=== PATIENT | female | born 1940 | race Caucasian/White ===

== ENCOUNTER → 2017-04-25 | Outpatient (CLI) | payer MEDICARE ==
[~2017-04-25] MED LIST: ADVAIR 250-501 EACH INH; AFEDITAB CR60 M1 PO; ALEVE220 MG PO; ASA5UEC PO; ASPIRIN EC81 M1 PO; ASPIRIN325 PO; ATORVASTATIN CA40 MG PO; AZITHROMYCIN 2250 MG PO; CELEXA 20 MG TA20 MG PO; CLARITIN10 MG PO; COLACE100 MG PO; COZAAR 50 MG TA50 M2 PO; CYMBALTA30 MG PO; DAYPRO600 MG PO; DYAZIDE 37.5-21 EACH PO; ESTRACE1 MG PO; FISH OIL 1,001000 M2 PO; FLONASE 0.05%50 MCG NASAL; KETOCONAZOLE15 GM TOP; LEVOTHYROXIN0.025 MG PO; LIPITOR 20 MG T20 M1 PO; LIPITOR20 MG PO; LOPRESSOR50 PO; MAXZIDE-25 MG1 EACH PO; MECLIZINE HCL25 M1 PO; MEDROLDOSEPACK PO; MELATONIN3 MG PO; MELATONIN5 M1 PO; METHYLPREDNISOLO4 MG PO; MINOCIN100 MG PO; MUCINEX600 MG PO; MULTI VITAMIN1 EACH PO; NAPROXEN SODIU220 M2 PO; NEURONTIN 300300 M1 PO; NORVASC10 MG PO; NYSTATIN 1100000 U/M SW&SWALLOW; PREDNISONE 20 M20 M1 PO; PROZAC20 M1 PO; PROZAC20 MG PO; REQUIP 1 MG TABL1 M1 PO; SYMBICORT160 MCG/4. INH; SYMBICORT80 MCG/4.5 INH; TOPAMAX 25 MG T25 M1 PO; TOPAMAX50 MG PO; TOPROL XL25 MG PO; TRAMADOL 50 MG50 MG PO; TRAZODONE HCL100 MG PO; TYLENOL EXTRA500 MG PO; TYLENOL325 MG PO; ULTRAM 50MG TAB50 MG PO; UNICOMPLEX M TA1 TA1 PO; VENTOLIN HFA 1818 GM INH; VITAMIN D31000 UNI2 PO; VOLTAREN GEL 1100 G1 TOP; VOLTAREN GEL 1100 G2 TOP; XANAX 0.25 MG0.25 MG PO; XARELTO15 MG PO; ZPAK PO
--- NOTE | 2017-04-27 09:35 | PAINCON ---
[address] [address] PAIN MANAGEMENT CONSULTATION Name: SANDRANAIMA Néstor [facility] [id number] Admission: 04/25/17 Attend Phys: Angela Pate Discharge: Date of : 38 Report #: [id number] THIS REPORT FOR: //name// CC: Pierre Bustamante The patient is a 76-year-old female, prior seen in the pain clinic in consultation on 01/10/2017 diagnosed with symptomatic lumbar radiculopathy, component of lumbar spondylosis, axial back pain. We talked about moving forward with epidural injection though she was on Xarelto for PE. She notes the pain continued, but has gotten worse over the past 2 weeks without antecedent trauma or overuse. She has been off her Xarelto now for about 6 weeks. She was seen in the ER on 03/18/2017 for acute exacerbation of underlying pulmonary disease and was given a Medrol Dosepak with some transient efficacy of her radicular pain. PHYSICAL EXAMINATION: MUSCULOSKELETAL: Today shows slight decreased right plantarflexion strength and lower extremity extension strength. Positive straight leg raise on the right. Diffuse axial back pain. VITAL SIGNS: Otherwise stable. ASSESSMENT: Symptomatic lumbar radiculopathy. PROCEDURE: Lumbar epidural injection under fluoroscopy. PROCEDURE NOTE: After both written and informed consent to include risk of spinal cord damage, increased pain, weakness and dural puncture, the patient was taken to the fluoroscopy suite, placed in the prone position. After sterile prep and drape, a skin wheal with lidocaine was raised. A 22-gauge epidural Tuohy needle was inserted in the midline at L5-S1 on the right with good loss to resistance. Negative aspiration for cerebrospinal fluid or blood was noted. Then 1 mL of Omnipaque under biplanar fluoroscopy showed good spread within the epidural space. This was followed with 80 mg of triamcinolone plus 1 mL of 1.5% preservative-free Xylocaine, 0.5 mL Xylocaine was then injected to flush the needle; it was removed. The patient was monitored for an appropriate period of time and discharged in good and stable condition. The patient discharged in good and stable condition. Followup is as needed. <ELECTRONICALLY SIGNED> By: Sebastien Bustamante DO 04/27/17 0935 1358 [id number] Bustamante DO /nt
== END | disposition home or self-care (01) ==
LOC: M.PC 03:36
DX: M54.16 Radiculopathy, lumbar region (principal); M47.896 Other spondylosis, lumbar region; I10 Essential (primary) hypertension; J44.9 Chronic obstructive pulmonary disease, unspecified; F41.8 Other specified anxiety disorders; Z86.73 Personal history of transient ischemic attack (TIA), and cerebral infarction without residual deficits; Z79.899 Other long term (current) drug therapy; Z98.890 Other specified postprocedural states; Z86.711 Personal history of pulmonary embolism; Z91.041 Radiographic dye allergy status; Z88.0 Allergy status to penicillin; Z88.6 Allergy status to analgesic agent; Z88.8 Allergy status to other drugs, medicaments and biological substances; Z79.82 Long term (current) use of aspirin

== ENCOUNTER 2017-05-20 17:58 | Emergency (ER) | payer MEDICARE ==
[~2017-05-20] VITALS: Ht 149.9 cm; Wt 79.4 kg
[~2017-05-20 17:58] MED LIST changes: -AZITHROMYCIN 2250 MG PO; -COLACE100 MG PO; -CYMBALTA30 MG PO; -KETOCONAZOLE15 GM TOP; -MINOCIN100 MG PO; -PREDNISONE 20 M20 M1 PO; -PROZAC20 MG PO; -TRAMADOL 50 MG50 MG PO
[2017-05-20] MEDS ORDERED: PREDNISONE 20 M20 M1 PO (18:17)
[2017-05-20] MEDS ORDERED: ZPAK PO (18:17)
[2017-05-20] MEDS ORDERED: VENTOLIN HFA 1818 GM INH (18:44)
[2017-05-20 18:54] VITALS: BP 124/68
--- NOTE | 2017-05-21 11:20 | EKG ---
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 : 1940 Requested By: Aguilar De La Fuente Order Number: [id number] MD: Sadi Hilario Measurements Intervals [place] Rate: 65 P: -2 ND: 150 QRS: 29 QRSD: 78 T: 20 QT: 388 QTc: 404 Interpretive Statements Sinus rhythm Atrial premature complex Compared to ECG 03/18/2017 12:39:21 Atrial premature complex(es) now present Myocardial infarct finding no longer present Electronically Signed On 05-21-2017 11:20:26 [employer] by Sadi Hilario [email or web address] <ELECTRONICALLY SIGNED> By: Sadi Hilario MD, [facility] 05/21/17 1120 17 Sadi Hilario MD, [facility] /EPI
[2017-11-07] MEDS ORDERED: CYMBALTA30 MG PO (14:23)
[2018-02-21] MEDS ORDERED: TRAMADOL 50 MG50 MG PO (08:37)
[2018-02-21] MEDS ORDERED: REQUIP 1 MG TABL1 M1 PO (08:37)
== END 2017-05-20 18:54 | disposition home or self-care (01) ==
LOC: M.ERS 17:58
DX: J44.1 Chronic obstructive pulmonary disease with (acute) exacerbation (principal); J45.909 Unspecified asthma, uncomplicated; I12.9 Hypertensive chronic kidney disease with stage 1 through stage 4 chronic kidney disease, or unspecified chronic kidney disease; N18.2 Chronic kidney disease, stage 2 (mild); J44.9 Chronic obstructive pulmonary disease, unspecified; E78.5 Hyperlipidemia, unspecified; E03.9 Hypothyroidism, unspecified; Z88.0 Allergy status to penicillin; Z88.5 Allergy status to narcotic agent; Z91.041 Radiographic dye allergy status; Z88.8 Allergy status to other drugs, medicaments and biological substances; Z86.73 Personal history of transient ischemic attack (TIA), and cerebral infarction without residual deficits

== ENCOUNTER 2017-07-29 10:58 | Inpatient (IN) | payer MEDICARE ==
[~2017-07-29] VITALS: Ht 157.5 cm; Wt 71.2 kg
[~2017-07-29 10:58] MED LIST changes: +PREDNISONE 20 M20 M1 PO
[2017-07-29 10:59] VITALS: BP 138/108
[2017-07-29] MEDS ORDERED: PROZAC20 MG PO (11:16)
[2017-07-29 11:43] LABS: ABSOLUTE BASOPHILS 0.1 thou/uL (0.0-0.2); ABSOLUTE EOSINOPHILS 0.2 thou/uL (0.0-0.7); ABSOLUTE LYMPHOCYTES 1.9 thou/uL (0.8-5.3); ABSOLUTE MONOCYTES 0.7 thou/uL (0.0-1.2); ABSOLUTE NEUTROPHILS 5.2 thou/uL (1.6-8.1); BASOPHILS 0.9 %; EOSINOPHILS 2.5 %; HEMATOCRIT 42.4 % (37.0-47.0); HEMOGLOBIN 14.9 gm/dL (12.0-15.0); LYMPHOCYTES 23.8 %; MCH 33.2 pg (26.0-34.0); MCHC 35.2 g/dL (28.0-37.0); MCV 94.5 fL (80.0-100.0); MONOCYTES 8.4 %; MPV 7.5 fl. (7.2-11.1); NUCLEATED RBCS 0 /100WBC; PLATELET COUNT* 298 thou/uL (150-400); POLYS 64.4 %; RBC 4.49 mil/uL (4.20-5.00); RDW-CV 13.6 % (10.5-14.5); WBC 8.1 thou/uL (4.0-11.0)
[2017-07-29 11:45] LABS: ANION GAP 10 mmol/L (7-16); BUN 16 mg/dL (7-18); CALCIUM 9.4 mg/dL (8.5-10.1); CHLORIDE 102 mmol/L (98-107); CO2 28 mmol/L (21-32); CREATININE 1.2 mg/dL (0.6-1.3); GLUCOSE 111 mg/dL (70-99); SODIUM 140 mmol/L (136-145)
[2017-07-29 11:46] LABS: POTASSIUM 2.8 mmol/L (3.5-5.1)
[2017-07-29 11:52] LABS: ALBUMIN 3.9 g/dL (3.4-5.0); ALKALINE PHOSPHATASE 93 U/L (46-116); LIPASE 164 U/L (73-393); SGOT 27 U/L (15-37); SGPT 35 U/L (30-65); TOTAL BILIRUBIN 0.5 mg/dL (<0.1-1.0); TOTAL PROTEIN 7.6 g/dL (6.4-8.2); TROPONIN-I LEVEL <0.06 ng/mL (<0.06)
[2017-07-29 14:04] LABS: URINE BILIRUBIN NEGATIVE (Negative); URINE BLOOD NEGATIVE (Negative); URINE CLARITY CLEAR; URINE COLOR YELLOW; URINE GLUCOSE-RANDOM NEGATIVE (Negative); URINE KETONES NEGATIVE (Negative); URINE LEUKOCYTES-REFLEX 1+ (Negative); URINE NITRITE-REFLEX NEGATIVE (Negative); URINE PROTEIN NEGATIVE (Negative); URINE SPECIFIC GRAVITY <= 1.005 (1.005-1.030); URINE UROBILINOGEN 0.2 E.U./dl (0.2-1.0)
[2017-07-29 14:12] LABS: BACTERIA-REFLEX 1-9 Few /HPF (None Seen); CASTS None Seen /LPF (None Seen); CRYSTALS None Seen /LPF (None Seen); MUCUS None Seen strn/LPF (None Seen); SQUAMOUS 4-10 Moderate /LPF (0-3); URINE RBC 0-2 Rare /HPF (0-2); URINE WBC-REFLEX 0-5 Rare /HPF (0-5)
[2017-07-29 15:35] VITALS: BP 114/67
[2017-07-29 17:34] VITALS: BP 102/60
--- NOTE | 2017-07-29 18:24 | NUR ---
PATIENT ARRIVED ON UNIT FROM ER AT 1630. COMPLETED ADMISSION ASSESSMENT AND HISTORY. ORIENTED PATIENT TO ROOM, CALL LIGHT, AND TV. PATIENT VERBALIZED UNDERSTANDING. PATIENT REMAINED ALERT AND ORIENTED X'S 4. VITAL SIGNS AND SPO2 STABLE. IV CLEAN FLUIDS INFUSING. PAIN WELL CONTROLLED WITH PAIN MEDS. NO NAUSEA AND VOMITING. VOIDED WITHOUT ISSUE USING BEDSIDE COMMODE. COMPLETED HOURLY ROUNDING, CALL LIGHT WITIHN REACH. WILL CONTINUE TO MONITOR.
[2017-07-29 21:20] VITALS: BP 153/62
--- NOTE | 2017-07-30 06:00 | NUR ---
PATIENT ALERT AND ORIENTED. VITALS STABLE. RA. UP WITH ASSIST X 1 WALKER AND GAITBELT TO BATHROOM. FENTANYL GIVEN FOR PAIN, EFFECTIVE. FLUIDS INFUSING PER ORDER. DENIES NAUSEA. SLEPT COMFORTABLY THROUGH THE NIGHT. HOURLY ROUNDS. BED ALARM IN USE. NURSING WILL CONTINUE TO MONITOR.
[2017-07-30 08:45] VITALS: BP 120/57; BP 127/55; BP 153/73
[2017-07-30 15:49] VITALS: BP 137/67
--- NOTE | 2017-07-30 17:57 | NUR ---
ASSUMED CARE OF PATIENT AFTER REPORT THIS MORNING. PATIENT AWAKE, ALERT, AND ORIENTED APPROPRIATELY. PHYSICAL ASSESSMENT COMPLETED AND CHARTED. COMPLAINED OF PAIN THIS SHIFT. GIVEN PRN AND SCHEDULED MEDICATIONS, SEE EMAR FOR DOCUMENTATION. VITAL SIGNS STABLE. OXYGEN SATURATION WITHIN NORMAL LIMITS ON ROOM AIR. PATIENT HAS SAT IN RECLINER AT BEDSIDE FOR MOST OF DAY. TRANSFERS AND AMBULATES WITH ASSISTANCE FROM STAFF AND WALKER. USES CALL LIGHT APPROPRIATELY. DENIES NEEDS AT THIS TIME. CALL LIGHT WITHIN REACH. NURSING WILL CONTINUE TO MONITOR.
[2017-07-30 20:00] VITALS: BP 142/66
--- NOTE | 2017-07-31 00:37 | NUR ---
PATIENT ORIENTED X4. UP WITH STAND BY ASSIST TO BATHROOM, TOLERATED WELL. TRAMADOL GIVEN FOR BACK PAIN. VITALS STABLE ON ROOM AIR. WILL CONTINUE TO MONITOR.
[2017-07-31 08:15] VITALS: BP 131/63
[2017-07-31] MEDS ORDERED: MEDROLDOSEPACK PO (08:34)
[2017-07-31 11:07] VITALS: BP 140/61
[2017-07-31 11:09] VITALS: BP 145/80
[2017-07-31 11:11] VITALS: BP 146/79
[2017-07-31 11:33] VITALS: BP 146/79
--- NOTE | 2017-07-31 12:00 | NUR ---
PT.UP IN CHAIR FOR LUNCH. SHE HAD DRESSED BY HERSELF IN BATHROOM. PT.ALERT AND ORIENTED. STATED SHE LIVES WITH HER SON. HE ASSISTS HER NEEDED. SHE HAS A CANE AND WALKER. SHE HAS USED [facility] IN THE PAST. SHE WOULD LIKE TO USE THEM AGAIN. SPOKE WITH [facility] AND FAXED DISCHARGE ORDERS TO HER. THEY WILL SEE PT.TOMORROW FOR NURSING AND HH.
--- NOTE | 2017-07-31 12:56 | NUR ---
PT HAS BEEN GIVEN DISCHARGE INSTRUCTIONS, HER AND HER SON DID NOT VERBALIZE ANY QUESTIONS AT THIS TIME. PT VERBALIZED UNDERSTANDING IN THE CHANGES OF HER MEDICATION REGIMEN AT THIS TIME. PT VSS STABLE, FREE OF N/V. PT HAVING NO ISSUES WITH GI/ AT THE TIME OF DISCHAGE. IV DISCONTINUED. PT TAKEN AT THIS TIME TO PERSONAL CAR WITH HER SON IN A WHEEL CHAIR WITH BELONGINGS.
--- NOTE | 2017-07-31 13:03 | NUR ---
THIS NURSE AGREES WITH ALL CHARTING AND DOCUMENTATION COMPLETED BY MELINDA CLAYTON RN. PATIENT DISCHARGED.
[2017-11-07] MEDS ORDERED: CYMBALTA30 MG PO (14:23)
[2018-02-21] MEDS ORDERED: TRAMADOL 50 MG50 MG PO (08:37)
[2018-02-21] MEDS ORDERED: REQUIP 1 MG TABL1 M1 PO (08:37)
== END 2017-07-31 13:05 | disposition home health service (06) | DRG 552 ==
LOC: M.ERS 10:58 → M.TBA-ER 14:28 → M.ORTHSURG 14:28
PROVIDERS: Physician Assistant; ADMIT Internal Medicine
DX: M54.16 Radiculopathy, lumbar region (principal); G25.81 Restless legs syndrome; J44.9 Chronic obstructive pulmonary disease, unspecified; E78.5 Hyperlipidemia, unspecified; E03.9 Hypothyroidism, unspecified; I12.9 Hypertensive chronic kidney disease with stage 1 through stage 4 chronic kidney disease, or unspecified chronic kidney disease; M19.90 Unspecified osteoarthritis, unspecified site; E87.6 Hypokalemia; Z82.49 Family history of ischemic heart disease and other diseases of the circulatory system; N18.2 Chronic kidney disease, stage 2 (mild); Z79.899 Other long term (current) drug therapy; Z86.73 Personal history of transient ischemic attack (TIA), and cerebral infarction without residual deficits; Z98.41 Cataract extraction status, right eye; Z86.711 Personal history of pulmonary embolism; Z88.8 Allergy status to other drugs, medicaments and biological substances; Z88.0 Allergy status to penicillin; Z88.6 Allergy status to analgesic agent; Z91.041 Radiographic dye allergy status; Z87.891 Personal history of nicotine dependence

== ENCOUNTER → 2017-08-22 | Outpatient (CLI) | payer MEDICARE ==
[~2017-08-22] MED LIST changes: +AZITHROMYCIN 2250 MG PO; +COLACE100 MG PO; +CYMBALTA30 MG PO; +KETOCONAZOLE15 GM TOP; +MINOCIN100 MG PO; +PROZAC20 MG PO; +TRAMADOL 50 MG50 MG PO
--- NOTE | 2017-08-23 06:52 | PAINCON ---
[facility] [address] [place] [address] PAIN MANAGEMENT CONSULTATION Name: SANDRANAIMA Néstor [facility] [id number] Admission: 08/22/17 Attend Phys: Angela Pate Discharge: Date of : 39 Report #: [id number] THIS REPORT FOR: //name// CC: Pierre Bustamante The patient is a 76-year-old female, prior seen in pain clinic back in April for symptomatic lumbar radiculopathy. Had single injection with overall improvement of baseline pain. She notes symptoms have begun to recur on July 07. Had a minor lifting injury, moving the cat litter box. Developed low back pain, which has progressed now to the left lateral leg to the foot, had some subjective weakness in the leg. Physical exam does note some tenderness in the T3 and L3 midline area. Does have some decreased strength in left leg to objective exam. Hip flexion and extension is about 3/5, 4-5/5 on the right. Straight leg raise is equivocal on the left side. The patient rates her pain as 7 on a VAS. Physical exam otherwise shows a 4 feet 11 inch, 158 pound female, BMI is 32 kilograms per meter squared. Blood pressure 137/75, pulse 60, respirations 16. Taking tramadol and Tylenol for pain. Rises from chair using armrest, moderately antalgic gait. Physical exam as noted above. CT was accomplished when the patient was admitted to hospital short-term (07/29/2017 through ) for sciatic type pain. CT noted anterolisthesis at L4-L5 with left greater than right neural foraminal stenosis. ASSESSMENT: Symptomatic lumbar radiculopathy by clinical exam and history, prior radicular symptoms, improved with epidural injection. Concern for thoracic and lumbar vertebral compression fracture. RECOMMENDATIONS: 1. Epidural injection under fluoroscopy today, we will go a little higher due to more anterior distribution of pain at L3-L4. 2. X-ray of the thoracic and lumbar spine with request to Interventional Radiology to follow up if the compression fracture is noted for more definitive therapy. The patient has been off Xarelto now for several weeks. PROCEDURE: Lumbar epidural injection under fluoroscopy. PROCEDURE NOTE: After both written and informed consent to include risk of spinal cord damage, increased pain, weakness and dural puncture, the patient was taken to the fluoroscopy suite, placed in the prone position. After sterile prep and drape, a skin wheal with lidocaine was raised. A 22-gauge epidural Tuohy needle was inserted in the midline at L3-L4 [place] [address] PAIN MANAGEMENT CONSULTATION Name: SANDRANAIMA W Room: [facility] PATY Michelle#: [id number] Admission: 08/22/17 Attend Phys: Angela Pate Discharge: Date of : 39 Report #: [id number] Negative aspiration for cerebrospinal fluid or blood was noted. Then 1 mL of Omnipaque under biplanar fluoroscopy showed good spread within the epidural space. This was followed with 80 mg of triamcinolone plus 1 mL of 1.5% preservative-free Xylocaine, 0.5 mL Xylocaine was then injected to flush the needle; it was removed. The patient was monitored for an appropriate period of time and discharged in good and stable condition. <ELECTRONICALLY SIGNED> By: Sebastien Bustamante DO 08/23/17 0652 1309 [id number] Bustamante DO /nt
== END | disposition home or self-care (01) ==
LOC: M.PC 02:42 → M.LAB 02:42 → M.PC 10:30
DX: M54.16 Radiculopathy, lumbar region (principal); G89.29 Other chronic pain; I10 Essential (primary) hypertension; J44.9 Chronic obstructive pulmonary disease, unspecified; F41.8 Other specified anxiety disorders; Z86.73 Personal history of transient ischemic attack (TIA), and cerebral infarction without residual deficits; Z91.041 Radiographic dye allergy status; Z88.0 Allergy status to penicillin; Z88.8 Allergy status to other drugs, medicaments and biological substances; Z79.82 Long term (current) use of aspirin; Z79.899 Other long term (current) drug therapy; Z86.711 Personal history of pulmonary embolism

== ENCOUNTER → 2017-09-19 | Outpatient (CLI) | payer MEDICARE ==
--- NOTE | 2017-09-24 06:53 | PAINCON ---
[facility] [address] [place] [address] PAIN MANAGEMENT CONSULTATION Name: SANDRANAIMA Néstor [facility] [id number] Admission: 09/19/17 Attend Phys: Angela Pate Discharge: Date of : 39 Report #: [id number] THIS REPORT FOR: //name// CC: Pierre Bustamante DATE OF SERVICE: 09/19/2017 HISTORY OF PRESENT ILLNESS: The patient is a 76-year-old female, prior seen in the pain clinic on 08/22/2017, given epidural injection at that time. The patient returns to the pain clinic today noting the injection has afforded good relief, is able to lie on her left side. She could not do this before. She notes perhaps 50% overall relief. Still has pain in the left L5 distribution. PHYSICAL EXAMINATION: Shows significant decreased left leg strength about 3/5 to all muscle groups tested, particularly plantar flexion and lower extremity flexion. Right leg has diminished strength to about 4/5. Grossly positive straight leg raise at 30 degrees on the left. Vital signs otherwise note blood pressure 152/71, pulse 71, respirations 16, BMI is 34.6 kilograms per meter squared. Subjective pain score is 6 on a VAS. Continued to use tramadol p.r.n. and Tylenol. ASSESSMENT: Symptomatic lumbar radiculopathy. RECOMMENDATION: Lumbar epidural injection under fluoroscopy today at L5-S1. Follow up simply as needed. Continue range of motion, physical therapy and exercise. PROCEDURE: Lumbar epidural injection under fluoroscopy. PROCEDURE NOTE: After both written and informed consent to include risk of spinal cord damage, increased pain, weakness and dural puncture, the patient was taken to the fluoroscopy suite, placed in the prone position. After sterile prep and drape, a skin wheal with lidocaine was raised. A 22-gauge epidural Tuohy needle was inserted in the midline at L5-S1 with good loss to resistance. Negative aspiration for cerebrospinal fluid or blood was noted. Then 1 mL of Omnipaque under biplanar fluoroscopy showed good spread within the epidural space. This was followed with 80 mg of triamcinolone plus 1 mL of 1.5% preservative-free Xylocaine, 0.5 mL Xylocaine was then injected to flush the needle; it was removed. The patient was monitored for an appropriate period of time and discharged in good and stable condition. <ELECTRONICALLY SIGNED> By: Sebastien Bustamante DO 09/24/17 0653 1356 0436Sebastien Bustamante DO /nt
== END | disposition home or self-care (01) ==
LOC: M.PC 01:43
DX: M54.16 Radiculopathy, lumbar region (principal); G89.29 Other chronic pain; I10 Essential (primary) hypertension; J44.9 Chronic obstructive pulmonary disease, unspecified; F41.8 Other specified anxiety disorders; Z86.73 Personal history of transient ischemic attack (TIA), and cerebral infarction without residual deficits; Z88.0 Allergy status to penicillin; Z91.040 Latex allergy status; Z88.8 Allergy status to other drugs, medicaments and biological substances; Z79.82 Long term (current) use of aspirin; Z79.899 Other long term (current) drug therapy; Z98.890 Other specified postprocedural states

== ENCOUNTER 2017-10-20 14:00 | Emergency (ER) | payer MEDICARE ==
[~2017-10-20] VITALS: Ht 144.8 cm; Wt 68.0 kg
[~2017-10-20 14:00] MED LIST changes: -AZITHROMYCIN 2250 MG PO; -COLACE100 MG PO; -CYMBALTA30 MG PO; -KETOCONAZOLE15 GM TOP; -MINOCIN100 MG PO; -TRAMADOL 50 MG50 MG PO
[2017-10-20] MEDS ORDERED: TRAMADOL 50 MG50 MG PO (14:29)
[2017-10-20 14:31] VITALS: BP 123/79
[2017-10-21] MEDS ORDERED: KETOCONAZOLE15 GM TOP (21:49)
[2017-10-21] MEDS ORDERED: AZITHROMYCIN 2250 MG PO (21:51)
[2017-11-07] MEDS ORDERED: CYMBALTA30 MG PO (14:23)
[2018-02-21] MEDS ORDERED: TRAMADOL 50 MG50 MG PO (08:37)
[2018-02-21] MEDS ORDERED: REQUIP 1 MG TABL1 M1 PO (08:37)
== END 2017-10-20 14:32 | disposition home or self-care (01) ==
LOC: M.ERS 14:00
DX: M54.5 Low back pain (principal); F41.9 Anxiety disorder, unspecified; J45.909 Unspecified asthma, uncomplicated; F32.9 Major depressive disorder, single episode, unspecified; G25.81 Restless legs syndrome; I12.9 Hypertensive chronic kidney disease with stage 1 through stage 4 chronic kidney disease, or unspecified chronic kidney disease; N18.3 Chronic kidney disease, stage 3 (moderate); Z86.711 Personal history of pulmonary embolism; Z86.73 Personal history of transient ischemic attack (TIA), and cerebral infarction without residual deficits; Z88.0 Allergy status to penicillin; Z88.8 Allergy status to other drugs, medicaments and biological substances; Z91.041 Radiographic dye allergy status; Z88.5 Allergy status to narcotic agent

== ENCOUNTER 2017-10-21 21:09 | Emergency (ER) | payer MEDICARE ==
[~2017-10-21] VITALS: Ht 144.8 cm; Wt 68.0 kg
[~2017-10-21 21:09] MED LIST changes: +TRAMADOL 50 MG50 MG PO
[2017-10-21 21:19] VITALS: BP 138/66
[2017-10-21] MEDS ORDERED: KETOCONAZOLE15 GM TOP (21:49)
[2017-10-21] MEDS ORDERED: AZITHROMYCIN 2250 MG PO (21:51)
[2017-11-07] MEDS ORDERED: CYMBALTA30 MG PO (14:23)
[2018-02-21] MEDS ORDERED: REQUIP 1 MG TABL1 M1 PO (08:37)
[2018-02-21] MEDS ORDERED: TRAMADOL 50 MG50 MG PO (08:37)
== END 2017-10-21 22:00 | disposition home or self-care (01) ==
LOC: M.ERS 21:09
DX: B35.3 Tinea pedis (principal); J44.9 Chronic obstructive pulmonary disease, unspecified; F41.9 Anxiety disorder, unspecified; I12.9 Hypertensive chronic kidney disease with stage 1 through stage 4 chronic kidney disease, or unspecified chronic kidney disease; N18.3 Chronic kidney disease, stage 3 (moderate); F32.9 Major depressive disorder, single episode, unspecified; Z88.0 Allergy status to penicillin; Z88.5 Allergy status to narcotic agent

== ENCOUNTER → 2017-11-07 | Outpatient (CLI) | payer MEDICARE ==
[~2017-11-07] MED LIST changes: +AZITHROMYCIN 2250 MG PO; +COLACE100 MG PO; +CYMBALTA30 MG PO; +KETOCONAZOLE15 GM TOP; +MINOCIN100 MG PO
--- NOTE | 2017-11-08 07:27 | PAINCON ---
[address] [address] PAIN MANAGEMENT CONSULTATION Name: SANDRANAIMA Palm Room: [facility] Viviana#: [id number] Admission: 11/07/17 Attend Phys: Angela Pate Discharge: Date of : 39 Report #: [id number] THIS REPORT FOR: //name// CC: Pierre Bustamante DATE OF SERVICE: 11/07/2017 HISTORY OF PRESENT ILLNESS: The patient is a pleasant 77-year-old female, prior seen in the pain clinic 09/19/2017. She was given an epidural injection at that time. Unfortunately, that day she had significant activity and noted diminished efficacy of the injection. She prior had epidural injections in April 2017 and August 2017 with excellent improvement of symptoms. She returns to pain clinic today noting pain has become quite problematic, it is in the low back, left leg with objective decreased strength to left leg to physical exam, objective hip flexion and extension, plantar flexion is about 3/5 on the left side, about 4/5 on the right. Patellar reflex is diminished, 1/4 on the left and 2/4 on the right. Straight leg raise is grossly positive at 30 degrees on the left. The patient rates subjective pain score is 6 on a VAS exacerbated with standing and walking. She has an appointment to see Dr. Bowen at [facility] for consideration for decompressive laminectomy. We reviewed the MRI from 07/29/2017, which notes L4-L5 to have moderate degenerative facet changes, 4 mm anterolisthesis of L4 and L5, left-sided neural foraminal narrowing. L5-S1 notes mild disk bulging. ASSESSMENT: Symptomatic lumbar radiculopathy by clinical exam and history. RECOMMENDATION: Epidural injection under fluoroscopy today, midline L5-S1 to help mitigate current symptoms, continue to follow up with Dr. Bowen for consideration for definitive intervention. PROCEDURE: Lumbar epidural injection under fluoroscopy. PROCEDURE NOTE: After both written and informed consent to include risk of spinal cord damage, increased pain, weakness and dural puncture, the patient was taken to the fluoroscopy suite, placed in the prone position. After sterile prep and drape, a skin wheal with lidocaine was raised. A 22-gauge epidural Tuohy needle was inserted in the midline at L5-S1 with good loss to resistance. Negative aspiration for cerebrospinal fluid or blood was noted. Then 1 mL of Omnipaque under biplanar fluoroscopy showed good spread [place] [address] PAIN MANAGEMENT CONSULTATION Name: SANDRANAIMA Néstor Room: [facility]#: [id number] Admission: 11/07/17 Attend Phys: Angela Pate Discharge: Date of : 39 Report #: [id number]. This was followed with 80 mg of triamcinolone plus 1 mL of 1.5% preservative-free Xylocaine, 0.5 mL Xylocaine was then injected to flush the needle; it was removed. The patient was monitored for an appropriate period of time and discharged in good and stable condition. <ELECTRONICALLY SIGNED> By: Sebastien Bustamante DO 11/08/17 0727 1327 2030[facility] Centeradrianne Bustamante DO /nt
== END | disposition home or self-care (01) ==
LOC: M.PC 10-31 04:13
DX: M54.16 Radiculopathy, lumbar region (principal); G89.29 Other chronic pain; I10 Essential (primary) hypertension; F41.9 Anxiety disorder, unspecified; J44.1 Chronic obstructive pulmonary disease with (acute) exacerbation; Z86.711 Personal history of pulmonary embolism; Z86.73 Personal history of transient ischemic attack (TIA), and cerebral infarction without residual deficits; Z88.0 Allergy status to penicillin; Z98.890 Other specified postprocedural states; Z88.8 Allergy status to other drugs, medicaments and biological substances; Z91.041 Radiographic dye allergy status; Z79.899 Other long term (current) drug therapy

== ENCOUNTER 2017-12-04 17:10 | Observation (INO) | payer MEDICARE ==
[~2017-12-04] VITALS: Ht 144.8 cm; Wt 73.5 kg
[~2017-12-04 17:10] MED LIST changes: -COLACE100 MG PO; -MINOCIN100 MG PO
[2017-12-04 17:11] VITALS: BP 176/91
[2017-12-04 18:16] LABS: ABSOLUTE BASOPHILS 0.1 thou/uL (0.0-0.2); ABSOLUTE EOSINOPHILS 0.3 thou/uL (0.0-0.7); ABSOLUTE LYMPHOCYTES 2.2 thou/uL (0.8-5.3); ABSOLUTE MONOCYTES 0.6 thou/uL (0.0-1.2); ABSOLUTE NEUTROPHILS 3.3 thou/uL (1.6-8.1); BASOPHILS 0.9 %; EOSINOPHILS 4.9 %; HEMATOCRIT 34.3 % (37.0-47.0); HEMOGLOBIN 11.9 gm/dL (12.0-15.0); LYMPHOCYTES 34.5 %; MCH 34.1 pg (26.0-34.0); MCHC 34.5 g/dL (28.0-37.0); MCV 98.8 fL (80.0-100.0); MONOCYTES 8.8 %; MPV 7.4 fl. (7.2-11.1); NUCLEATED RBCS 0 /100WBC; PLATELET COUNT* 233 thou/uL (150-400); POLYS 50.9 %; RBC 3.48 mil/uL (4.20-5.00); WBC 6.4 thou/uL (4.0-11.0)
[2017-12-04 18:23] LABS: ANION GAP 7 mmol/L (7-16); BUN 26 mg/dL (7-18); CALCIUM 8.4 mg/dL (8.5-10.1); CHLORIDE 109 mmol/L (98-107); CO2 26 mmol/L (21-32); CREATININE 0.9 mg/dL (0.6-1.3); GLUCOSE 91 mg/dL (70-99); POTASSIUM 3.1 mmol/L (3.5-5.1); SODIUM 142 mmol/L (136-145)
[2017-12-04 18:24] LABS: PROTIME 9.5 Seconds (9.20-11.50)
[2017-12-04 18:34] LABS: ALBUMIN 3.2 g/dL (3.4-5.0); ALKALINE PHOSPHATASE 57 U/L (46-116); LIPASE 163 U/L (73-393); NT-PRO BRAIN NAT PEPTIDE 132 pg/mL (<300); SGOT 18 U/L (15-37); SGPT 23 U/L (30-65); TOTAL BILIRUBIN 0.2 mg/dL (<0.1-1.0); TOTAL PROTEIN 6.1 g/dL (6.4-8.2); TROPONIN-I LEVEL <0.06 ng/mL (<0.06)
[2017-12-04 20:00] VITALS: BP 148/96
[2017-12-04 20:28] VITALS: BP 172/82
[2017-12-04 22:45] LABS: URINE BILIRUBIN NEGATIVE (Negative); URINE BLOOD NEGATIVE (Negative); URINE CLARITY CLEAR; URINE COLOR YELLOW; URINE GLUCOSE-RANDOM NEGATIVE (Negative); URINE KETONES NEGATIVE (Negative); URINE LEUKOCYTES-REFLEX NEGATIVE (Negative); URINE NITRITE-REFLEX NEGATIVE (Negative); URINE PROTEIN NEGATIVE (Negative); URINE UROBILINOGEN 0.2 E.U./dl (0.2-1.0)
[2017-12-04 23:30] VITALS: BP 145/71
[2017-12-05 04:00] VITALS: BP 136/80
[2017-12-05 05:44] LABS: CHOLESTEROL 142 mg/dL (<200); HDL CHOLESTEROL 74 mg/dL (>40); LDL CHOLESTEROL 48 mg/dL (<100); TC:HDL 1.9 Ratio (Not establshd); TRIGLYCERIDE 101 mg/dL (<150); VLDL 20 mg/dL (<40)
[2017-12-05 05:49] LABS: SERUM ASSESSMENT Clear
[2017-12-05 08:00] VITALS: BP 148/87
[2017-12-05 12:00] VITALS: BP 112/63
[2017-12-05 13:15] VITALS: BP 112/63
--- NOTE | 2017-12-05 13:37 | EKG ---
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1940 Requested By: Lars Buchanan Order Number: [id number] MD: Magan Melendez Measurements Intervals [place] Rate: 64 P: 45 RI: 186 QRS: 18 QRSD: 94 T: 27 QT: 439 QTc: 453 Interpretive Statements Sinus rhythm Consider anterior infarct Minimal ST depression, lateral leads Compared to ECG 05/20/2017 18:18:03 Myocardial infarct finding now present ST (T wave) deviation now present Atrial premature complex(es) no longer present Electronically Signed On 12-05-2017 13:37:07 CDT by Magan Melendez [email or web address] <ELECTRONICALLY SIGNED> By: Magan Melendez MD, FACC 12/05/17 1337 1753 1753 Magan Melendez MD, [facility] /EPI
[2017-12-05] MEDS ORDERED: COLACE100 MG PO (14:07)
[2017-12-05] MEDS ORDERED: MINOCIN100 MG PO ×3 (14:15→15:29)
[2017-12-07 05:10] LABS: GLYCOHEMOGLOBIN (HGB A1C) 5.4 % (4.8-5.6)
--- NOTE | 2017-12-07 12:17 | EEG ---
[address] [address] EEG STUDY REPORT Name: NAIMA FLORES Room: [address] Sarai Michelle#: [id number] Admission: 12/04/17 Attend Phys: Angela Bueno Discharge: 12/05/17 Date of : 38 Report #: [id number] THIS REPORT FOR: //name// CC: Pierre Hess DATE OF SERVICE: 12/05/2017 This patient is being evaluated for an episode of confusion. EEG was done by placing the electrode by standard 10-20 system of electrode placement. Both referential and sequential montages were used for recording. Background activity in this patient's EEG is about 9 Hz and 40 microvolts. The patient went to sleep that is associated with bilaterally symmetrical sleep spindle and vertex sharp waves. Photic stimulation is unremarkable. Throughout the record, no active epileptiform activity was noticed. IMPRESSION: This patient's EEG is within normal limits. Thank you very much for this referral. <ELECTRONICALLY SIGNED> By: Wolfgang Guzmán MD 12/07/17 1217 1824 1839Wolfgang Guzmán MD /nt
--- NOTE | 2017-12-07 12:17 | CON ---
[address] [address] CONSULTATION Name: NAIMA FLORES Room: [address] [place]ai Michelle#: [id number] Admission: 12/04/17 Attend Phys: Angela Bueno Discharge: 12/05/17 Date of : 38 Report #: [id number] THIS REPORT FOR: //name// CC: ESETE physician/PCP Eric Hess DATE OF SERVICE: 12/04/2017 HISTORY OF PRESENT ILLNESS: This is a 77-year-old female patient whom I have seen in the past. In fact, we have seen her more than one time and she has been admitted with confusion, for which we have not been able to find any cause. At one time in 2016, she even received TPA. She has been seen by multiple neurologists including Dr. Pedraza and Dr. Pettit and I have talked to this patient's son. She again is admitted with some poorly defined history of confusion and some shakiness from which she became better. She is under a lot of stress. Her son has been diagnosed with rectal cancer with metastasis to the liver as I understand from her. She has multiple other history including anxiety, nerve injury, sciatic nerve problem, dizziness, possible TIA, for which I have seen, but I am not sure the diagnosis was confirmed hip fracture. She cannot have an MRI because of ear implant, so MRI has not been done in this patient and the prior the diagnosis has been presumptive. REVIEW OF SYSTEMS: A 14-point review of systems was carried out and this was her relevant 14-point review of system. At one time, she was also thought to be having migraine and she was given Topamax. PAST MEDICAL HISTORY: Positive for TIA-like symptoms, is also positive for anxiety and depression. FAMILY HISTORY: Negative for early age stroke. SOCIAL HISTORY: She does not smoke. PHYSICAL EXAMINATION: Indicate she is alert. She is anxious. She can follow simple commands. Her speech looks unremarkable. Memory and fund of knowledge is difficult to tell. She takes long time to answer the question, but this is not much different than she was when I saw her last time. Cranial nerve examination 2-12 looks unremarkable. Neuromuscular examination is unremarkable. Cardiac examinations appear unremarkable. No respiratory difficulty or rhonchi. She is moderately built individual who does not have any dysmorphic features of eyes, ears and face. There is no cerebellar sign. There is no thyroid mass. Blood pressure is 172/82, respirations 17, pulse is 60. LABORATORY DATA: Indicate a WBC count of 6.4. IMPRESSION: This patient's episode may be because of anxiety[place] [address] CONSULTATION Name: NAIMA FLORES Room: [address] [place]ai Michelle#: [id number] Admission: 12/04/17 Attend Phys: Angela Bueno Discharge: 12/05/17 Date of : 38 Report #: [id number] patient multiple times before and I have never been able to find any cause for her symptoms. RECOMMENDATIONS: We will check an EEG and I will discuss the patient with you to see whether we need to do any further testing in this patient. She may need a psych consult. Thank you very much for this referral and I have discussed all of it with the patient and the patient's son in the past. <ELECTRONICALLY SIGNED> By: Wolfgang Guzmán MD 12/07/17 1217 0138Wolfgang Guzmán MD /nt
[2018-02-21] MEDS ORDERED: TRAMADOL 50 MG50 MG PO (08:37)
[2018-02-21] MEDS ORDERED: REQUIP 1 MG TABL1 M1 PO (08:37)
== END 2017-12-05 16:20 | disposition home or self-care (01) ==
LOC: M.ERS 17:10 → M.2W 18:35 → M.TBA-ER 18:35 → M.2W 18:35
PROVIDERS: Emergency Medicine; ADMIT Internal Medicine
DX: G45.9 Transient cerebral ischemic attack, unspecified (principal); R41.82 Altered mental status, unspecified; R53.1 Weakness; G43.909 Migraine, unspecified, not intractable, without status migrainosus; J44.9 Chronic obstructive pulmonary disease, unspecified; I12.9 Hypertensive chronic kidney disease with stage 1 through stage 4 chronic kidney disease, or unspecified chronic kidney disease; N18.3 Chronic kidney disease, stage 3 (moderate); F41.9 Anxiety disorder, unspecified; F32.9 Major depressive disorder, single episode, unspecified; Z86.69 Personal history of other diseases of the nervous system and sense organs; Z86.711 Personal history of pulmonary embolism; Z98.890 Other specified postprocedural states; Z72.89 Other problems related to lifestyle; Z87.891 Personal history of nicotine dependence

== ENCOUNTER 2017-12-10 15:57 | Emergency (ER) | payer MEDICARE ==
[~2017-12-10] VITALS: Ht 144.8 cm; Wt 72.6 kg
[~2017-12-10 15:57] MED LIST changes: +COLACE100 MG PO; +MINOCIN100 MG PO
[2017-12-10 17:32] VITALS: BP 166/80
--- NOTE | 2017-12-11 17:16 | EKG ---
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 YATES : 1940 Requested By: Tatyana Latham Order Number: [id number] Barron MD: Magan Melendez Measurements Intervals [place] Rate: 70 P: 31 [place]: 164 QRS: 42 QRSD: 87 T: 28 QT: 405 QTc: 437 Interpretive Statements Sinus rhythm Nonspecific ST segment depression, consider ischemia Compared to ECG 12/04/2017 17:53:47 Myocardial infarct finding no longer present ST (T wave) deviation still present Electronically Signed On 12-11-2017 17:16:51 CDT by Magan Melendez [email or web address] <ELECTRONICALLY SIGNED> By: Magan Melendez MD, [facility] 12/11/17 1716 1615 1615 Magan eMlendez MD, [facility] /EPI
[2018-02-21] MEDS ORDERED: TRAMADOL 50 MG50 MG PO (08:37)
[2018-02-21] MEDS ORDERED: REQUIP 1 MG TABL1 M1 PO (08:37)
== END 2017-12-10 17:38 | disposition left against medical advice (07) ==
LOC: M.ERS 15:57
DX: R27.0 Ataxia, unspecified (principal); J44.9 Chronic obstructive pulmonary disease, unspecified; I10 Essential (primary) hypertension; G25.81 Restless legs syndrome; Z88.0 Allergy status to penicillin; Z91.041 Radiographic dye allergy status; Z88.5 Allergy status to narcotic agent

== ENCOUNTER → 2018-01-01 | Outpatient (CLI) | payer MEDICARE ==
--- NOTE | 2018-01-09 16:41 | PAINCON ---
[address] [address] PAIN MANAGEMENT CONSULTATION Name: NAIMA FLORES Room: [facility] PATY Michelle#: [id number] Admission: 01/01/18 Attend Phys: Armando Ruiz MD Discharge: Date of : 39 Report #: [id number] THIS REPORT FOR: //name// CC: Pierre Ruiz DATE OF SERVICE: 01/01/2018 CHIEF COMPLAINT: Low back pain. I would like to consider an injection. FOLLOWUP HISTORY: The patient is a 77-year-old female who has been seen in the pain clinic by Dr. Sebastien Bustamante. She has undergone epidural steroid injections and glean excellent benefit from these procedures. She has returned today indicating that her pain has increased somewhat. She is having pain and discomfort, which is radiating down into her legs. She has been in the hospital because of micro transient ischemic attacks. The longest transient ischemic attack described as moderate lasted about 60-80 minutes. She has had no residuals. She has a history of migraines and COPD. She has returned today with a consideration of undergoing an injection. She continues to take tramadol to help with the pain. She is not on opioid medications on a long-term basis. ALLERGIES: CONTRAST DYE, BETA ADRENERGIC AGENTS, PENICILLIN, LISINOPRIL, GABAPENTIN, AND HYDROCODONE. CURRENT MEDICATIONS: Tylenol Extra Strength 500 mg every 4-6 hours, aspirin 325 mg, Lipitor 40 mg, Colace 100 mg, Flonase 0.05% spray, nifedipine 60 mg ER, restless leg syndrome using Requip tablets 3 mg at bedtime, Topamax 75 mg p.m. and 50 mg a.m., tramadol 50 mg, and Maxzide 25 mg. PAST MEDICAL HISTORY: 1. Asthma. 2. COPD. 3. Hypertension. 4. Heart disease. 5. Gallbladder disease. 6. Kidney disease. 7. Emotional problems. 8. Joint disease/arthritis. 9. Stroke. 10. Ulcers. PAST SURGICAL HISTORY: Hysterectomy in 1979 and cholecystectomy in 1999. 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 [address] PAIN MANAGEMENT CONSULTATION Name: NAIMA FLORES Room: [facility]#: [id number] Admission: 01/01/18 Attend Phys: Armando Ruiz MD Discharge: Date of : 39 Report #: [id number] REVIEW OF SYSTEMS: Questionnaire generally noting weight changes, fevers at night, fatigue, weakness, headaches, glaucoma/cataracts, hearing loss, ringing in the ears, shortness of breath, swelling of the feet, chronic cough, shortness of breath, asthma, joint pain, difficulty walking, back pain, muscle soreness, memory, nervousness, depression, and insomnia. LABORATORY DATA: MRI of the lumbar spine dated 07/29/2017 reveals: 1. L3-L4 foramen intact, mild broad base disk bulge, mild ligamentum hypertrophy. This produces a borderline spinal narrowing at this level. 2. L4-L5, there is moderate degenerative facet changes with vacuum disk at the L4-L5 level. There is a 4 mm anterolisthesis of L4 upon L5. The upper right foramen is intact. There is a left-sided foramen spurring, which encroaches upon the lower foramen, but the left nerve root appears to exceed just above these changes. There is a moderate AP spinal stenosis at this level. This could account for symptoms of the L4 nerve root distribution. There may be some impingement. 3. L5-S1, there is mild disk bulging. The axial nerve root appears intact. PAIN CLINIC ASSESSMENT: 1. History of osteoarthritis. The patient has not been treated for rheumatoid arthritis or osteoarthritis. 2. Height 4 feet 9 inches, weight 157 pounds, BMI is 34. 3. Vital Signs: Blood pressure 175/77, heart rate 62, respiratory rate 16, room air saturation 98%, and temperature 97.7. 4. Pain impact score 5-05/15/10. 5. Fall risk. The patient has not fallen in the last 3 months. 6. Blood thinner. The patient is not on a blood thinning medication. 7. History of hypertension. The patient is being treated for hypertension. 8. Opioid therapy greater than 6 weeks. The patient is not on an opioid medication on a regular basis. 9. Risk assessment tool. 10. Functional assessment tool. 11. Recreational drug use. The patient denies use of recreational drugs. 12. Tobacco: The patient stopped smoking in 1999. She has approximately [id number] smoking history. 13. Alcohol: The patient denies use of alcoholic beverages. PHYSICAL EXAMINATION: GENERAL: The patient is a well-developed white female, appears her stated age. She is alert and oriented x 3. Affect is appropriate. The speech is fluent. HEENT: Normocephalic, atraumatic. Extraocular eye muscles intact. Sclerae nonicteric. Hearing is within normal limits. Mucous membranes are moist. NECK: Without adenopathy or JVD. The patient without significant scoliosis, kyphosis, or lordosis. Has pain and discomfort, which is radiating down [place] [address] PAIN MANAGEMENT CONSULTATION Name: NAIMA FLORES Room: [facility]#: [id number] Admission: 01/01/18 Attend Phys: Armando Ruiz MD Discharge: Date of : 39 Report #: [id number] IMPRESSION: 1. Chronic low back pain with lumbar radicular pain, which improved with epidural steroid injection. 2. History of transient ischemic attacks. The patient's son states that her last TIA was of the longest duration was about 80 minutes. 3. Chronic obstructive pulmonary disease. 4. Migraine history. 5. The patient's son has a rectal cancer, which has metastasized to his liver. States that it is doing reasonably well as a type A type, which is responding to treatment with [facility]. RECOMMENDATIONS: We reviewed the patient's chart. It appears that she had an epidural steroid injection in the last 3 months. At this juncture, we have informed her that probably her insurance company would not pay for an injection at this juncture. She will follow up in February. The patient will return in February, at which time she will then undergo an epidural steroid injection. We would like to thank you for letting us participate in her care. We hope she continues to improve. <ELECTRONICALLY SIGNED> By: Armando Ruiz MD 01/09/18 1641 [id number]. Johnson Ruiz MD /nt
== END ==
LOC: M.PC 12-25 11:20
DX: M54.5 Low back pain (principal); J44.9 Chronic obstructive pulmonary disease, unspecified; G43.909 Migraine, unspecified, not intractable, without status migrainosus; I10 Essential (primary) hypertension; G45.9 Transient cerebral ischemic attack, unspecified

== ENCOUNTER → 2018-02-21 | Outpatient (CLI) | payer MEDICARE ==
--- NOTE | 2018-02-25 10:00 | PAINCON ---
[address] [address] PAIN MANAGEMENT CONSULTATION Name: NAIMA FLORES [id number] Admission: 02/21/18 Attend Phys: Armando Ruiz MD Discharge: Date of : 39 Report #: [id number] THIS REPORT FOR: //name// CC: Pierre Ruiz DATE OF SERVICE: 02/21/2018 CHIEF COMPLAINT: Back pain down in the left leg. HISTORY OF PRESENT ILLNESS: The patient is a 77-year-old female, who has been seen in the pain clinic because of chronic pain. She is experiencing pain that is radiating down into her low back area. She has undergone an epidural steroid injection and gleaned excellent benefit from these. She rates her pain as a 5/10. She notes some weakness in the L5-S1 dermatomal distribution. She notes the pain can be problematic with activities of daily living such as walking, sitting, climbing stairs, standing, and finds her medication as well as rest continue to be helpful. CURRENT MEDICATIONS: The patient is on extra strength Tylenol 500 mg q.4 hours, aspirin 325 mg, Lipitor 40 mg, Colace 100 mg, Flonase 0.05% spray, nifedipine 60 mg ER, restless legs syndrome, uses Requip 3 mg at bedtime; Topamax 75 mg p.m., 50 mg a.m.; tramadol 50 mg, and Maxzide 25 mg. ALLERGIES: THE PATIENT IS ALLERGIC TO CONTRAST DYE, BETA-ADRENERGIC AGENTS, PENICILLIN, LISINOPRIL, GABAPENTIN, AND HYDROCODONE. PAIN CLINIC ASSESSMENT AND PQRS: 1. History of osteoarthritis. The patient is not being treated for osteoarthritis or rheumatoid arthritis. 2. Pain is 5/10. 3. Fall risk. The patient has not fallen in the last 3 months. 4. Blood thinner. The patient is not on a blood thinning medication. 5. History of hypertension. The patient is being treated for hypertension. 6. Opioid therapy greater than 6 weeks. The patient is not on her opioid regimen, but does take tramadol 50 mg b.i.d. 7. Risk assessment tool. 8. Functional assessment tool. 9. Recreational drug use. The patient denies use of recreational drugs. 10. Tobacco: The patient stopped smoking in 1999. She has approximately 12-pack smoking history. 11. Alcohol: The patient denies use of alcoholic beverages. PHYSICAL EXAMINATION: GENERAL: The patient is a well-developed, well-nourished white female. She appears her stated age. She is alert and oriented x 3. [place] [address] PAIN MANAGEMENT CONSULTATION Name: NAIMA FLORES Room: [facility]#: [id number] Admission: 02/21/18 Attend Phys: Armando Ruiz MD Discharge: Date of : 39 Report #: [id number]. Speech is fluent. Height is 4 feet 9 inches, weight is 159 pounds, and BMI is 34. VITAL SIGNS: Blood pressure is 136/65, heart rate is 68, respiratory rate is 16, room air saturation is 95%, and temperature is 97.9. HEENT: Normocephalic, atraumatic. Extraocular eye muscles intact. Sclerae nonicteric. Mucous membranes are moist. NECK: Without adenopathy or JVD. HEART: Regular rate. ABDOMEN: Nontender. Bowel sounds present. The patient has pain and discomfort in the lower portion of her back with pain that radiates down in the left sciatic nerve distribution with numbness, weakness, and tenderness. IMPRESSION: 1. Chronic low back pain with lumbar radicular pain, which has improved in the past significantly with an epidural steroid injections. 2. History of transient ischemic attack. 3. Chronic obstructive pulmonary disease. 4. Migraine history. 5. Son has rectal cancer. He continues to teach at [employer]. He has had some metastases to his liver. He is doing reasonably well, but has significant amounts of pain. He continues with treatment at [facility]. RECOMMENDATIONS: We have discussed treatment options with the patient. Her son was present. They both agree that a lumbar epidural steroid injection could be beneficial. She has had them in the past. They have been beneficial. She has had no complications. Her desire is to proceed with an injection. Risks and benefits of the procedure, which could include, but are not limited to infection, increased muscle soreness, headache, bleeding, worsening of pain, and paralysis were discussed and the patient elects to proceed. PROCEDURE NOTE: The patient was taken to the procedure area. She was assisted in getting on the examination table. Fluoroscopy using anterior, posterior as well as lateral viewing were incorporated. Her back and been sterilely prepped with Betadine. A 0.25% bupivacaine was infiltrated. A 25-gauge needle was then used to numb the area. A 17-gauge Tuohy with loss of resistance technique was used to gain excess using left paraspinal approach. A total of 80 mg Depo-Medrol, 40 mg of triamcinolone, and 2 mL of 0.25% bupivacaine was injected. The patient tolerated the procedure well. There were no complications. She was then taken to the recovery room. She remained for appropriate amount of time. Her fluoroscopy time in seconds was 6. The patient will follow up in the future as needed. [facility] [address] [place] [address] PAIN MANAGEMENT CONSULTATION Name: NAIMA FLORES Room: [facility]#: [id number] Admission: 02/21/18 Attend Phys: Armando Ruiz MD Discharge: Date of : 39 Report #: [id number] We would like to thank you for letting us to participate in her care. We hope she continues to improve. <ELECTRONICALLY SIGNED> By: Armando Ruiz MD 02/25/18 1000 [id number] [id number]. Johnson Ruiz MD /PMT
== END | disposition home or self-care (01) ==
LOC: M.PC 05:18
DX: M54.16 Radiculopathy, lumbar region (principal); G89.29 Other chronic pain; J44.9 Chronic obstructive pulmonary disease, unspecified; G43.909 Migraine, unspecified, not intractable, without status migrainosus; Z86.73 Personal history of transient ischemic attack (TIA), and cerebral infarction without residual deficits; Z80.0 Family history of malignant neoplasm of digestive organs; Z91.040 Latex allergy status; Z88.0 Allergy status to penicillin; Z88.8 Allergy status to other drugs, medicaments and biological substances; Z79.899 Other long term (current) drug therapy

== ENCOUNTER → 2018-05-23 | Outpatient (CLI) | payer MEDICARE ==
--- NOTE | ~2018-05-23 | PAINCON ---
[address] [address] PAIN MANAGEMENT CONSULTATION Name: NAIMA FLORES Room: [facility] PATY Michelle#: [id number] Admission: 05/23/18 Attend Phys: Armanod uRiz MD Discharge: Date of : 39 Report #: [id number] THIS REPORT FOR: //name// CC: Pierre Metz DATE OF SERVICE: 05/23/2018 CHIEF COMPLAINT: Here for another epidural steroid injection. Things went really well after the last. HISTORY: The patient is a 77-year-old female who has been seen in the pain clinic because of chronic pain involving her low back. She has had pain that radiates down into the L5-S1 dermatomal distribution. She has undergone epidural steroid injections in the past and gleaned benefit from this. She has noted a return of her pain. Last injection was in 02/2018. Had no complication from the procedure. She has returned today with a desire to undergo another epidural steroid injection and that she received a significant amount of pain and discomfort or pain reduction after the last injection. Denies any trauma or complications after the last injection. Rates her pain today as a 5/10. Finds that tramadol and Tylenol continue to be helpful as well. ALLERGIES: THE PATIENT IS ALLERGIC TO CONTRAST DYE, BETA ADRENERGIC AGENTS, PENICILLIN, LISINOPRIL, GABAPENTIN, HYDROCODONE. CURRENT MEDICATIONS: Tylenol 500 mg, aspirin 325 mg, Lipitor 40 mg, Colace 100 mg, Flonase 0.05% spray, nifedipine 60 mg ER, restless leg syndrome uses Requip 3 mg at bedtime, Topamax 75 mg p.m., 50 mg a.m., tramadol 50 mg, Maxzide 25 mg. PAIN CLINIC ASSESSMENT/PQRS: 1. The patient is not being treated for osteoarthritis or rheumatoid arthritis. 2. Pain /10. 3. Vital Signs: Blood pressure 134/66, heart rate 73, respiratory rate 20, room air saturation 97%. Temperature 97.8, height 5 feet 4 inches, weight 150 pounds, BMI 32.6. 4. Pain intensity score 10. 5. Fall history: The patient has not fallen in the last 3 months. 6. Blood thinner. The patient is not on a blood thinning medication. 7. Hypertension. The patient is being treated for hypertension. 8. Opioid greater than 6 weeks. The patient is not on a regular opioid medication, but does take tramadol. 9. Risk assessment tool, low for opioid use. 10. Functional assessment tool. 11. Recreational drug use. The patient denies use of recreational drugs. 12. Tobacco: The patient stopped smoking in 1999, approximately a [id number] [address] PAIN MANAGEMENT CONSULTATION Name: SANDRANAIMA W Room: [facility]#: [id number] Admission: 05/23/18 Attend Phys: Armando Ruiz MD Discharge: Date of : 39 Report #: [id number] smoking history. 13. Alcohol: The patient denies use of alcoholic beverages. PHYSICAL EXAMINATION: GENERAL: The patient is a well-developed, well-nourished white female. She appears her stated age. She is alert and oriented x 3. Her affect is appropriate. Speech is fluent. She is accompanied by her son. HEENT: Normocephalic, atraumatic. Extraocular eye muscles intact. Sclerae nonicteric. Mucous membranes moist. The patient wears glasses. NECK: Without adenopathy or JVD. HEART: Regular rate. S1, S2. ABDOMEN: Nontender. Bowel sounds present. The patient has some pain and discomfort in lower portion of her back with pain that radiates down in the left sciatic area in the L5 dermatomal distribution with numbness, tingling, and weakness. IMPRESSION: 1. Chronic low back pain with lumbar radicular pain improved after an epidural steroid injection in February. 2. History of transient ischemic attack. 3. Chronic obstructive pulmonary disease. 4. Migraine history. 5. Son continues with chemotherapy, teaches at [employer]. Has had cancer with some liver mets. Continues to improve with his current medication regimen, which she receives at [facility]. RECOMMENDATIONS: We discussed treatment options with the patient and her son. Risks and benefits of an epidural steroid injection were again reviewed. Possible complications of the procedure could include, but are not limited to infection, worsening pain, no improvement in pain, nerve damage, paralysis, bleeding and the patient elects to proceed. PROCEDURE NOTE: The patient was taken to the procedure area. She was assisted in getting on the examination table. A pillow was placed on her abdomen to bolster improve positioning. The anterior, posterior and lateral viewing with the fluoroscopy machine was undertaken. Her back was sterilely prepped with a Betadine solution and allowed to dry. At the L5-S1 area on the left side using the left paramedian approach, 0.25% bupivacaine was infiltrated with a 25-gauge needle. A 17-gauge Tuohy with loss of resistance technique was used to gain access to the epidural space. There was no CSF, heme or paresthesia. Total of 80 mg Depo-Medrol, 40 mg triamcinolone and 2 mL of 0.25% bupivacaine was injected. Total of 8 seconds fluoroscopy time was used. The patient's pain score was 4 at the time of discharge. [place] [address] PAIN MANAGEMENT CONSULTATION Name: NAIMA FLORES Room: [facility]#: [id number] Admission: 05/23/18 Attend Phys: Armando Ruiz MD Discharge: Date of : 39 Report #: [id number] needed. We would like to thank you for letting us participate in her care. We hope she continues to improve. By: 1447 1941N. Johnson Ruiz MD /PAZ
== END | disposition home or self-care (01) ==
LOC: M.PC 12:30
DX: M54.16 Radiculopathy, lumbar region (principal); G89.29 Other chronic pain; I10 Essential (primary) hypertension; J44.9 Chronic obstructive pulmonary disease, unspecified; G43.909 Migraine, unspecified, not intractable, without status migrainosus; F41.9 Anxiety disorder, unspecified; Z86.73 Personal history of transient ischemic attack (TIA), and cerebral infarction without residual deficits; Z88.0 Allergy status to penicillin; Z91.041 Radiographic dye allergy status; Z88.8 Allergy status to other drugs, medicaments and biological substances; Z79.899 Other long term (current) drug therapy; Z87.891 Personal history of nicotine dependence; Z98.890 Other specified postprocedural states; Z86.711 Personal history of pulmonary embolism; Z79.01 Long term (current) use of anticoagulants; Z79.82 Long term (current) use of aspirin

== ENCOUNTER 2018-06-05 17:30 | Emergency (ER) | payer MEDICARE ==
[~2018-06-05] VITALS: Ht 144.8 cm; Wt 65.8 kg
[2018-06-05 17:37] VITALS: BP 159/81
== END 2018-06-05 19:08 | disposition home or self-care (01) ==
LOC: M.ERS 17:30
DX: S61.412A Laceration without foreign body of left hand, initial encounter (principal); J44.9 Chronic obstructive pulmonary disease, unspecified; I10 Essential (primary) hypertension; G25.81 Restless legs syndrome; Z88.0 Allergy status to penicillin; Z91.041 Radiographic dye allergy status; Z88.5 Allergy status to narcotic agent; Z88.8 Allergy status to other drugs, medicaments and biological substances; W01.0XXA Fall on same level from slipping, tripping and stumbling without subsequent striking against object, initial encounter; Y93.89 Activity, other specified; Y92.89 Other specified places as the place of occurrence of the external cause; Y99.8 Other external cause status

== ENCOUNTER 2018-07-30 03:17 | Emergency (ER) | payer MEDICARE ==
[~2018-07-30] VITALS: Ht 144.8 cm; Wt 66.7 kg
[~2018-07-30 03:17] MED LIST changes: +CIPROFLOXACIN500 M1 PO
[2018-07-30] MEDS ORDERED: KEFLEX500 M1 PO (04:03)
[2018-07-30 04:12] VITALS: BP 141/67
--- NOTE | 2018-07-30 17:09 | EKG ---
[place] [address] ELECTROCARDIOGRAM REPORT Name: NAIMA FLORES Room: [facility]#: [id number] Admission: 07/30/18 Attend Phys: Discharge: 07/30/18 Date of : 39 Report #: [id number] THIS REPORT FOR: //name// [facility] ED Test Date: 2018-07-30 Test Time: 03:30:17 Pat Name: NAIMA FLORES Department: Room: Gender: F Educational Technician: STARR : 1940 Requested By: Ragini Guzman Order Number: [id number] Barron MD: Magan Melendez Measurements Intervals [place] Rate: 73 P: 26 WA: 162 QRS: 33 QRSD: 85 T: 32 QT: 399 QTc: 440 Interpretive Statements Sinus rhythm Minimal ST depression, diffuse leads Compared to ECG 12/10/2017 16:15:54 ST (T wave) deviation now present Possible ischemia no longer present Electronically Signed On 07-30-2018 17:09:32 CDT by Magan Melendez [email or web address] <ELECTRONICALLY SIGNED> By: Magan Melendez MD, [facility] 07/30/18 1709 0330 Magan Melendez MD, FACC /EPI
== END 2018-07-30 04:12 | disposition home or self-care (01) ==
LOC: M.ERS 03:17
DX: M79.18 Myalgia, other site (principal); R68.84 Jaw pain; G25.81 Restless legs syndrome; F41.9 Anxiety disorder, unspecified; J44.9 Chronic obstructive pulmonary disease, unspecified; I12.9 Hypertensive chronic kidney disease with stage 1 through stage 4 chronic kidney disease, or unspecified chronic kidney disease; N18.2 Chronic kidney disease, stage 2 (mild); Z88.0 Allergy status to penicillin; Z91.041 Radiographic dye allergy status; Z88.5 Allergy status to narcotic agent; Z88.8 Allergy status to other drugs, medicaments and biological substances

== ENCOUNTER → 2018-08-08 | Outpatient (CLI) | payer MEDICARE ==
[~2018-08-08] MED LIST changes: +KEFLEX500 M1 PO
--- NOTE | ~2018-08-08 | PAINCON ---
[address] [address] PAIN MANAGEMENT CONSULTATION Name: NAIMA FLORES Room: [facility] PATY Michelle#: [id number] Admission: 08/08/18 Attend Phys: Armando Ruiz MD Discharge: Date of : 39 Report #: [id number] THIS REPORT FOR: //name// CC: Pierre Ruiz DATE OF SERVICE: 08/08/2018 CHIEF COMPLAINT: Low back pain. HISTORY: The patient is a 77-year-old female who has been seen in the pain clinic because of lumbar radiculopathy. She has undergone epidural steroid injections in the past and gleaned significant benefit from these. She did quite well until she fell in June. States that she fell on the ice. Did cut her fingers a bit. Did not need Emergency Room attention. States at this point, she is having pain, which is quite problematic and causes her to roll out of the bed. She was able to get out of bed. She then had to crawl on her knees. She is unable to stand. Rates her pain as a 10/10 at this juncture. She has returned to the pain clinic with a desire to undergo an epidural steroid injection. Noted 100% relief after her pain after the last injection. She feels that the tramadol is helpful with her pain. Also, uses Tylenol. She does have some problems with restless legs syndrome and finds that the medications at bedtime are helpful. Notes activities now such as walking, sitting, standing and climbing stairs are more problematic. ALLERGIES: PENICILLIN, LISINOPRIL, GABAPENTIN, HYDROCODONE, IV CONTRAST DYES, AND BETA ADRENERGIC AGENTS ARE PROBLEMATIC. CURRENT MEDICATIONS: Tylenol 500 mg, aspirin 325 mg, Lipitor 40 mg, Colace 100 mg, Flonase 0.05% spray, nifedipine 60 mg ER, restless legs syndrome, Requip 3 mg at bedtime, Topamax 75 mg p.m., 50 mg a.m., tramadol 50 mg, Maxzide 25 mg. PAIN CLINIC ASSESSMENT/PQRS: 1. The patient is not being treated for osteoarthritis or rheumatoid arthritis. 2. Height is 4 feet 9 inches, weight 156 pounds, BMI is 34. 3. Vital Signs: Blood pressure 159/85, heart rate 67, respiratory rate 16, room air saturation 95%, temperature 97.8. 4. Pain intensity 02/20. 5. Fall history: The patient did fall in June. 6. Blood thinner. The patient is not on a blood thinning medication. 7. Hypertension. The patient is being treated for hypertension. 8. Opioids greater than 6 weeks. The patient receives her medication from one source, the pain clinic. 9: Risk assessment tool, low for low opioid use. 10. Functional assessment tool. 11. Recreational drug use. The patient denies [place] [address] PAIN MANAGEMENT CONSULTATION Name: NAIMA FLORES [facility] [id number] Admission: 08/08/18 Attend Phys: Armando Ruiz MD Discharge: Date of : 39 Report #: [id number] 12. Tobacco. The patient stopped smoking in 1999. Smoking history of approximately [id number]. 13. Alcohol: The patient denies use of alcoholic beverages. PHYSICAL EXAMINATION: GENERAL: The patient is a well-developed, well-nourished white female. Appears her stated age. She is alert and oriented x 3. Her affect is appropriate. Speech is fluent. HEENT: Normocephalic, atraumatic. Extraocular eye muscles are intact. Sclerae nonicteric. Mucous membranes are moist. The patient is wearing glasses. She is accompanied by her son who is an educator at an [employer]. NECK: Without adenopathy or JVD. HEART: Regular rate. ABDOMEN: Nontender. Bowel sounds are present. The patient has pain and discomfort in lower back. She moves quite slowly and carefully. Some assistance is needed to help her get on the table. Uses both hands is to go from a sitting to a standing position. Complains about pain and discomfort in the L5 dermatomal distribution with pain radiating down into the left leg with weakness. IMPRESSION: 1. Chronic low back pain improved by 100% after the last epidural steroid injection until a fall on the ice in June. 2. History of transient ischemic attacks. 3. Chronic obstructive pulmonary disease. 4. Migraine history. 5. Son continues to teach at [employer] and is taking chemotherapy. Has continued to lose weight with cancer in the rectal area, which has metastasized to his liver. Continues to be treated at [facility]. RECOMMENDATIONS: We discussed treatment options with the patient and her son. At this juncture, she felt that she got good relief from the injection. She would like to proceed with another one. Risks and benefits of the procedure were again discussed. The possible complication of the procedure, which could include but are not limited to infection, worsening of pain, no improvement in pain, trauma to the nerves with paralysis. The patient elects to proceed. PROCEDURE NOTE: The patient was placed in the prone position. Fluoroscopy was used to identify the area using anterior, posterior ____. Her back was sterilely prepped with a Betadine solution. A 0.25% bupivacaine was infiltrated at the L4-L5 interspace using the left midline approach. After appropriate placement and infiltration with a 25-gauge needle with 0.25% bupivacaine was infiltrated to numb the area. A 17-gauge Tuohy with loss of resistance technique at the L4-L5 area was used using the paramedian approach and after appropriate placement, aspiration was negative. A total of 80 mg Depo-Medrol, [place] [address] PAIN MANAGEMENT CONSULTATION Name: NAIMA FLORES [facility]: [facility]#: [id number] Admission: 08/08/18 Attend Phys: Armando Ruiz MD Discharge: Date of : 39 Report #: [id number] 40 mg triamcinolone and 2 mL of 0.25% bupivacaine was injected. The patient tolerated the procedure well. There were no complications. We would like to thank you for letting us participate in her care. Hope she continues to improve. A total of about 7 seconds fluoroscopy time was used. By: 1216 [id number]. Johnson Ruiz MD /nt
== END | disposition home or self-care (01) ==
LOC: M.PC 00:34
DX: M54.16 Radiculopathy, lumbar region (principal); G89.29 Other chronic pain; I10 Essential (primary) hypertension; J44.9 Chronic obstructive pulmonary disease, unspecified; G43.909 Migraine, unspecified, not intractable, without status migrainosus; F41.9 Anxiety disorder, unspecified; Z88.0 Allergy status to penicillin; Z88.8 Allergy status to other drugs, medicaments and biological substances; Z91.041 Radiographic dye allergy status; Z79.899 Other long term (current) drug therapy; Z86.73 Personal history of transient ischemic attack (TIA), and cerebral infarction without residual deficits; Z87.891 Personal history of nicotine dependence; Z86.711 Personal history of pulmonary embolism; Z79.01 Long term (current) use of anticoagulants; Z79.82 Long term (current) use of aspirin

== ENCOUNTER → 2018-11-28 | Outpatient (CLI) | payer MEDICARE ==
--- NOTE | ~2018-11-28 | PAINCON ---
[address] [address] PAIN MANAGEMENT CONSULTATION Name: NAIMA FLORES Room: [facility] PATY Michelle#: [id number] Admission: 11/28/18 Attend Phys: Armando Ruiz MD Discharge: Date of : 39 Report #: [id number] THIS REPORT FOR: //name// CC: Pierre Metz DATE OF SERVICE: 11/28/2018 CHIEF COMPLAINT: Pain in the low back has returned. It was helped 100% after the last injection. HISTORY: The patient is a 78-year-old female who has been seen in the pain clinic because of lumbar radiculopathy. She has returned today with complaining of return of left low back pain that radiates down into her leg. She has undergone physical therapy. She is having pain in her right knee. The pain in her right knee in conjunction with pain with back pain, which radiates down into her heel are rated at 8/10. After the 100% improvement from an epidural steroid injection at the last visit. She has noted a gradual increase in pain. She finds that the tramadol is helpful. Notes that her pain is exacerbated with walking, sitting, standing, going from a sitting to a standing position. Notes that medications as well as rest are helpful. She denies any new bowel or bladder dysfunction. She is quite saddened at the recent of her son, had cancer with liver metastases. He in September. ALLERGIES: PENICILLIN, LISINOPRIL, GABAPENTIN, HYDROCODONE, IV CONTRAST DYE, BETA-ADRENERGIC AGENTS. CURRENT MEDICATIONS: Tylenol 500 mg; aspirin 325 mg; Lipitor 40 mg; Colace 100 mg; Flonase 0.5% spray; nifedipine 60 mg ER; restless leg syndrome, Requip 3 mg at bedtime; Topamax 75 mg; quetiapine 50 mg in the a.m.; tramadol 50 mg; Maxzide 25 mg. PAIN CLINIC ASSESSMENT/PQRS: 1. The patient has not been treated for osteoarthritis or rheumatoid arthritis. 2. Height 4 feet 9 inches, weight 156 pounds, BMI is 33.6. 3. Vital signs: Blood pressure 150/66, heart rate 72, respiratory rate 16, room air saturation 96%, temperature 98.3. 4. Pain intensity 12/21. 5. Fall history: The patient has not fallen since we saw her last. 6. Blood thinner. The patient is not on a blood thinning medication. 7. Hypertension. The patient is being treated for hypertension. 8. Opiates greater than 6 weeks. The patient is not on a regular opioid regimen. 9. Risk assessment tool, low for opioid use. 10. Functional [place] [address] PAIN MANAGEMENT CONSULTATION Name: NAIMA FLORES Room: [facility]#: [id number] Admission: 11/28/18 Attend Phys: Armando Ruiz MD Discharge: Date of : 39 Report #: [id number] 11. Recreational drug use. The patient denies use of recreational drugs. 12. Tobacco: The patient stopped smoking in 1999. Smoking history of approximately 12 pack years. 13. Alcohol. The patient denies use of alcoholic beverages. PHYSICAL EXAMINATION: GENERAL: The patient is a well-developed, well-nourished white female. Appears her stated age. She is alert and oriented x 3. Her affect is appropriate. Speech is fluent. HEENT: Normocephalic, atraumatic. Extraocular eye muscles intact. Sclerae is nonicteric. Mucous membranes are moist. The patient is wearing her glasses. NECK: Without adenopathy or JVD. HEART: Regular rate. ABDOMEN: Nontender. Bowel sounds present. EXTREMITIES: Lower extremity muscle strength is judged to be 4+/5 for the major muscle groups in the lower extremities. The patient has pain and discomfort in the low back area with pain that is radiating down in the right leg to the back of the leg and down into her heel. IMPRESSION: 1. Chronic low back pain, improved 100% after last epidural steroid injection. 2. History of transient ischemic attacks. 3. Chronic obstructive pulmonary disease. 4. Migraine history. 5. A son who taught at [employer] who lost his mcbride with rectal cancer and in September. The patient continues to be a saddened. RECOMMENDATIONS: We discussed treatment options with the patient. Risks and benefits of an epidural steroid injection were discussed. Possible complications of the procedure were reviewed. They could include but are not limited to infection, worsening pain, no improvement in pain, nerve damage, bleeding, increased muscle soreness and the patient elects to proceed. PROCEDURE NOTE: The patient was taken to the procedure area. She was then assisted in getting on the examination table. Her back was sterilely prepped with a Betadine solution at the L4-L5 area. A 17-gauge Tuohy with loss of resistance technique was used to gain access to the epidural space. At the L5-S1 area using a midline approach with a left paramedian direction 0.25% bupivacaine was infiltrated using a 25-gauge needle. After this area was numbed the 17-gauge Tuohy was then advanced into the epidural space. There was no CSF, heme or paresthesia. A total of 80 mg Depo-Medrol, 40 mg triamcinolone, and 2 mL of 0.25% bupivacaine was injected. The patient tolerated the procedure well. There were no complications. Total of 8 seconds fluoroscopy time was used. The patient remained in the pain clinic for an appropriate [place] [address] PAIN MANAGEMENT CONSULTATION Name: NAIMA FLORES Room: [facility]#: [id number] Admission: 11/28/18 Attend Phys: Armando Ruiz MD Discharge: Date of : 39 Report #: [id number] will follow up in the future as needed. We would like to thank you for letting us participate in her care. We hope she continues to improve. By: [id number]. Johnson Ruiz MD /PAZ
== END | disposition home or self-care (01) ==
LOC: M.PC 04:36
DX: M54.16 Radiculopathy, lumbar region (principal); G89.29 Other chronic pain; J44.9 Chronic obstructive pulmonary disease, unspecified; G43.909 Migraine, unspecified, not intractable, without status migrainosus; Z86.73 Personal history of transient ischemic attack (TIA), and cerebral infarction without residual deficits; Z98.890 Other specified postprocedural states; Z79.899 Other long term (current) drug therapy; Z80.0 Family history of malignant neoplasm of digestive organs; Z88.0 Allergy status to penicillin; Z91.041 Radiographic dye allergy status; Z88.8 Allergy status to other drugs, medicaments and biological substances

== ENCOUNTER 2019-09-05 20:55 | Inpatient (IN) | payer MEDICARE ==
[~2019-09-05] VITALS: Ht 144.8 cm; Wt 77.3 kg
[2019-09-05 21:42] LABS: ABSOLUTE BASOPHILS 0.1 thou/uL (0.0-0.2); ABSOLUTE EOSINOPHILS 0.1 thou/uL (0.0-0.7); ABSOLUTE LYMPHOCYTES 0.6 thou/uL (0.8-5.3); ABSOLUTE MONOCYTES 1.5 thou/uL (0.0-1.2); ABSOLUTE NEUTROPHILS 13.3 thou/uL (1.6-8.1); BASOPHILS 0.4 %; EOSINOPHILS 0.9 %; HEMATOCRIT 37.4 % (37.0-47.0); MCH 32.6 pg (26.0-34.0); MCHC 34.7 g/dL (28.0-37.0); MCV 93.8 fL (80.0-100.0); MONOCYTES 9.7 %; MPV 7.4 fl. (7.2-11.1); NUCLEATED RBCS 0 /100WBC; PLATELET COUNT* 289 thou/uL (150-400); RBC 3.99 mil/uL (4.20-5.00); RDW-CV 13.9 % (10.5-14.5); WBC 15.6 thou/uL (4.0-11.0)
[2019-09-05 21:44] VITALS: BP 141/71
[2019-09-05 21:47] LABS: CREATININE 1.7 mg/dL (0.6-1.3); POTASSIUM 3.3 mmol/L (3.5-5.1)
[2019-09-05 21:49] LABS: INR 0.9; PROTIME 9.5 Seconds (9.20-11.50)
[2019-09-05 21:58] LABS: ALBUMIN 3.9 g/dL (3.4-5.0); MAGNESIUM 1.9 mg/dL (1.8-2.4); TOTAL BILIRUBIN 0.3 mg/dL (<0.1-1.0); TOTAL PROTEIN 7.1 g/dL (6.4-8.2)
[2019-09-05 22:47] LABS: URINE BILIRUBIN NEGATIVE (Negative); URINE BLOOD NEGATIVE (Negative); URINE CLARITY CLEAR; URINE COLOR YELLOW; URINE GLUCOSE-RANDOM NEGATIVE (Negative); URINE KETONES NEGATIVE (Negative); URINE LEUKOCYTES-REFLEX 1+ (Negative); URINE NITRITE-REFLEX NEGATIVE (Negative); URINE PROTEIN TRACE (Negative); URINE UROBILINOGEN 0.2 E.U./dl (0.2-1.0)
[2019-09-05 22:56] LABS: BACTERIA-REFLEX 1-9 Few /HPF (None Seen); CASTS None Seen /LPF (None Seen); CRYSTALS None Seen /LPF (None Seen); SQUAMOUS 0-3 Few /LPF (0-3); URINE RBC 0-2 Rare /HPF (0-2); URINE WBC-REFLEX 0-5 Rare /HPF (0-5)
[2019-09-06] VITALS (7 sets, daily range): BP systolic 85–156; BP diastolic 46–85
[2019-09-06] MEDS ORDERED: TRAMADOL 50 MG50 MG PO (02:58)
[2019-09-06] MEDS ORDERED: OMEPRAZOLE 20 M20 M1 PO (02:59)
[2019-09-06] MEDS ORDERED: NIFEDIPINE ER60 M1 PO (02:59)
[2019-09-06] MEDS ORDERED: TRIAMTERENE/HCT1 CA1 PO (03:00)
--- NOTE | 2019-09-06 05:46 | NUR ---
RECEIVED REPORT AND ASSUMED CARE OF PATIENT APPROX 0130. PATIENT MAINTAINED IN ENHANCED PRECAUTIONS DUE TO PENDING COVID-19. PATIENT DENIES PAIN AND DISCOMFORT. MAINTAINING O2 SATURATION ON ROOM AIR. HAS SOME SHORTNESS OF AIR ON EXERTION BUT REPORTS THAT TO BE CHRONIC DUE TO HER ASTHMA. PATIENT HAS HOME MEDICATIONS ON HER, INSTRUCTED THEY ARE NOT TO BE TAKEN WHILE SHE IS HERE. PATIENT VERBALIZES UNDERSTANDING. CALL LIGHT WITHIN REACH.
[2019-09-06] MEDS ORDERED: BENADRYL25 MG PO (05:54)
[2019-09-06] MEDS ORDERED: VICKS SINEX15 M1 NASAL (05:56)
[2019-09-06 10:24] LABS: INFLUENZA A ANTIGEN Negative (Negative); INFLUENZA B ANTIGEN Negative (Negative)
[2019-09-06 10:26] LABS: HEMATOCRIT 37.5 % (37.0-47.0); HEMOGLOBIN 12.9 gm/dL (12.0-15.0); MCH 32.8 pg (26.0-34.0); MCHC 34.5 g/dL (28.0-37.0); MCV 95.1 fL (80.0-100.0); MPV 7.8 fl. (7.2-11.1); RBC 3.95 mil/uL (4.20-5.00); RDW-CV 14.1 % (10.5-14.5); WBC 12.9 thou/uL (4.0-11.0)
[2019-09-06 10:37] LABS: ALBUMIN 3.6 g/dL (3.4-5.0); CALCIUM 7.3 mg/dL (8.5-10.1); CREATININE 1.3 mg/dL (0.6-1.3); POTASSIUM 3.4 mmol/L (3.5-5.1); TOTAL BILIRUBIN 0.3 mg/dL (<0.1-1.0)
[2019-09-06] MEDS ORDERED: REQUIP3 MG PO (16:22)
[2019-09-06] MEDS ORDERED: ALENDRONATE SOD35 MG PO (16:27)
[2019-09-06] MEDS ORDERED: ALLERCLEAR10 MG PO (16:28)
[2019-09-06] MEDS ORDERED: ANORO ELLIPTA1 EACH INH (16:29)
[2019-09-06] MEDS ORDERED: CALCIUM + D3 E1 EACH PO (16:31)
[2019-09-06] MEDS ORDERED: VITAMIN D3250 MCG PO (16:33)
[2019-09-06] MEDS ORDERED: DULOXETINE HCL30 MG PO (16:33)
[2019-09-06] MEDS ORDERED: LAMOTRIGINE250 MG PO (16:35)
--- NOTE | 2019-09-06 19:53 | NUR ---
I ASSUMED CARE OF THE PATIENT AT 0700. SHE IS ALERT AND ORIENTED X4 AND IS UP AD GILDA. BED IS IN THE LOW LOCKED POSITION AND CALL LIGHT IS IN REACH. HOURLY ROUNDING IS COMPLETED AND PATIENT NEEDS ARE MET. PAIN IS DENIED. SHE REFUSES SCD'S SINCE SHE HAS DIARRHEA. MADDISON WITH [employer] [phone] CAN BE CALLED WITH ANY QUESTIONS. THE AFTER HOURS OFFICE NUMBER IS [phone]. FLU SWAB WAS SUBMITTED AND UA WAS SUBMITTED. POTASSIUM WAS REPLACED. WILL CONTINUE TO MONITOR. ISOLATION WAS MAINTAINED.
[2019-09-07 06:02] LABS: HEMATOCRIT 38.3 % (37.0-47.0); HEMOGLOBIN 13.2 gm/dL (12.0-15.0); MCH 32.7 pg (26.0-34.0); MCHC 34.6 g/dL (28.0-37.0); MCV 94.5 fL (80.0-100.0); MPV 7.6 fl. (7.2-11.1); RBC 4.05 mil/uL (4.20-5.00); RDW-CV 14.2 % (10.5-14.5)
[2019-09-07 06:09] LABS: CREATININE 0.9 mg/dL (0.6-1.3); POTASSIUM 3.8 mmol/L (3.5-5.1)
--- NOTE | 2019-09-07 06:30 | NUR ---
PATIENT HAS REMAINED ALERT AND ORIENTED X 4 THROUGHOUT THE SHIFT AND RESTING AT INTERVALS ON HOURLY ROUNDS. UP INDEPENDENTLY IN THE ROOM. VITAL SIGNS STABLE AND WITHOUT FEVER. SOME SHORTNESS OF AIR AT TIMES WHICH PATIENT STATES IS NORMAL FOR HER WITH HER ASTHMA. CO-VID SWAB RESULTED WITH NONE DETECTED. PHYSICIAN MADE AWARE. STATED DIRRHEA SHE HAD BEEN HAVING HAS RESOLVED. IVF'S PER ORDER HAVE COMPLETED. CONTINUE TO MONITOR.
[2019-09-07 08:23] VITALS: BP 173/82
[2019-09-07 08:24] VITALS: BP 156/82
[2019-09-07 08:26] VITALS: BP 153/87
--- NOTE | 2019-09-07 12:30 | NUR ---
PATIENT TRANSFERRED TO ROOM 211 THIS AFTERNOON FOR COVID NEGATIVE RESULT. REPORT CALLED TO JANNA BABIN. PATIENT UP WITH SBA. ORTHOSTATICS DAILY NEGATIVE THIS AM. IV SL, FLUSHING WITHOUT DIFFICULTY. CXR DONE THIS AFTERNOON. PER DR. VEE NO ISOLATION NEEDED FOR TRANSFER. PATIENT NOTIFIED THAT HOME DOSE LAMICTAL WAS NOT AVAILABLE HERE AND WOULD NEED TO BRING HER HOME MEDICATION IN, PATIENT VERBALIZES UNDERSTANDING. ALL BELONGINGS SENT WITH PATIENT.
--- NOTE | 2019-09-07 16:09 | EKG ---
[place] [address] ELECTROCARDIOGRAM REPORT Name: NAIMA FLORES Room: [address] ADM IN ..#: [id number] Admission: 09/05/19 Attend Phys: Eric Hess Discharge: Date of : 38 Date of Service: 09/05/192113 Report #: [id number] THIS REPORT FOR: //name// [facility] ED Test Date: 2019-09-05 Test Time: 21:14:32 Pat Name: NAIMA FLORES Department: Room: [facility] Gender: F Senior Nuclear Medicine Technologist: ANDRIY : 1940 Requested By: Ragini Guzman Order Number: [id number] MD: Magan Melendez Measurements Intervals [place] Rate: 91 P: 81 PA: 157 QRS: 22 QRSD: 77 T: 95 QT: 353 QTc: 435 Interpretive Statements Sinus rhythm Anteroseptal infarct, old Repol abnrm suggests ischemia, anterolateral Compared to ECG 07/30/2018 03:30:17 Myocardial infarct finding now present Early repolarization now present Possible ischemia now present ST (T wave) deviation no longer present Electronically Signed On 09-07-2019 16:07:44 CDT by Magan Melendez [email or web address] <ELECTRONICALLY SIGNED> By: Magan Melendez MD, FACC 09/07/19 1607 13 13 Magan Melendez MD, [facility] /EPI
--- NOTE | 2019-09-07 16:20 | NUR ---
RECEVIED REPORT FROM BRITTANI SALDIVAR FROM [facility]. PT ARRIVED TO TELE FLOOR AROUND 1200. PT A&O X4. VITALS CHARTED. PT STATES SHE IS FEELING MUCH BETTER THAN WHEN SHE WAS ADMITTED. DIARRHEA HAS SUBSIDED. APPETITE POOR, BUT TOLERATING DIET. PT COMMUNICATING WITH FAMILY OFTEN VIA HER CELL PHONE. PT REPORTS CHRONIC BACK PAIN BUT DENIES NEED FOR MEDICATION/INTERVENTION FOR PAIN AT THIS TIME. PT HOPEFUL TO GO HOME TOMORROW - ANXIOUS TO GET HOME TO CARE FOR HER CATS. THIS RN HAS REVIEWED AND AGREES WITH THE ASSESSMENT AND CHARTING OF BRITTANI SALDIVAR. PT CURRENTLY SITTING UP IN BED ON HER PHONE. CALL LIGHT IS WITHIN REACH. FALLL PRECAUTIONS IN PLACE. HOURLY ROUNDING PERFORMED.
[2019-09-07 18:47] VITALS: BP 142/74
[2019-09-07 20:00] VITALS: BP 153/72
[2019-09-08] VITALS: BP 115/46
[2019-09-08 04:00] VITALS: BP 148/82
[2019-09-08 08:00] VITALS: BP 157/92
[2019-09-08 10:46] VITALS: BP 157/92
[2019-09-08 10:47] VITALS: BP 157/92
--- NOTE | 2019-09-08 10:51 | NUR ---
ASSUMED PT CARE REPORT RECEIVED FROM NURSE PT IS AOX4. ON RA. MEDSURG STATUS. COMPLAINS OF PAIN IN RIGHT EAR. RIGHT EAR IS TENDER TO TOUCH, BUT DOES NOT LOOK DISCOLORED OR SWOLLEN. UP WITH STAND BY ASSIST. DISCHARGE ORDERED. IV LINE REMOVED. TYLENOL GIVEN FOR RIGHT EAR PAIN. DR MADE AWARE ABOUT RIGHT EAR PAIN AND DR REFER PT TO PCP FOR FURTHER EVAL AND TO TAKE TYLENOL NEEDED. PT INFORMED ABOUT THAT. PT HAD ALREADY SET HER APPOINTMENT WITH HER PCP. PT NOW AWAITING FOR HER RIDE IN ROOM. DC INSTRUCTION GIVEN
--- NOTE | 2019-09-08 11:14 | NUR ---
PT LEFT UNIT AT 1110 ACCOMPANIED BY NURSING STAFF ON WHEELCHAIR. DAUGHTER AWAITING IN ER
== END 2019-09-08 11:10 | disposition home or self-care (01) | DRG 871 ==
LOC: M.ERS 20:55 → M.TBA-ER 23:31 → M.2W 23:31 → M.ORTHSURG 09-06 01:45 → M.2W 09-07 12:36
PROVIDERS: Emergency Medicine; Internal Medicine; ADMIT Internal Medicine
DX: A41.89 Other specified sepsis (principal); N17.0 Acute kidney failure with tubular necrosis; N18.3 Chronic kidney disease, stage 3 (moderate); G25.81 Restless legs syndrome; J44.9 Chronic obstructive pulmonary disease, unspecified; A08.4 Viral intestinal infection, unspecified; E87.6 Hypokalemia; F41.1 Generalized anxiety disorder; I12.9 Hypertensive chronic kidney disease with stage 1 through stage 4 chronic kidney disease, or unspecified chronic kidney disease; Z20.828 Contact with and (suspected) exposure to other viral communicable diseases; Z79.82 Long term (current) use of aspirin; Z79.899 Other long term (current) drug therapy; Z88.5 Allergy status to narcotic agent; Z88.0 Allergy status to penicillin; Z88.8 Allergy status to other drugs, medicaments and biological substances; Z91.041 Radiographic dye allergy status; Z87.891 Personal history of nicotine dependence

== ENCOUNTER 2019-10-31 13:44 | Emergency (ER) | payer MEDICARE ==
[~2019-10-31] VITALS: Ht 144.8 cm; Wt 66.2 kg
[~2019-10-31 13:44] MED LIST changes: +ALENDRONATE SOD35 MG PO; +ALLERCLEAR10 MG PO; +ANORO ELLIPTA1 EACH INH; +BENADRYL25 MG PO; +CALCIUM + D3 E1 EACH PO; +DULOXETINE HCL30 MG PO; +LAMOTRIGINE250 MG PO; +NIFEDIPINE ER60 M1 PO; +OMEPRAZOLE 20 M20 M1 PO; +REQUIP3 MG PO; +TRIAMTERENE/HCT1 CA1 PO; +VICKS SINEX15 M1 NASAL; +VITAMIN D3250 MCG PO
[2019-10-31] MEDS ORDERED: MEDROLDOSEPACK PO (14:35)
[2019-10-31 16:12] VITALS: BP 146/85
== END 2019-10-31 16:13 | disposition home or self-care (01) ==
LOC: M.ERS 13:44 → EDBD 13:44 → M.ERS 16:13
DX: M54.42 Lumbago with sciatica, left side (principal); I10 Essential (primary) hypertension; K21.9 Gastro-esophageal reflux disease without esophagitis; J44.9 Chronic obstructive pulmonary disease, unspecified; J45.909 Unspecified asthma, uncomplicated; G25.81 Restless legs syndrome; F41.9 Anxiety disorder, unspecified; Z86.73 Personal history of transient ischemic attack (TIA), and cerebral infarction without residual deficits; Z86.711 Personal history of pulmonary embolism; Z91.041 Radiographic dye allergy status; Z88.0 Allergy status to penicillin; Z88.6 Allergy status to analgesic agent; Z88.8 Allergy status to other drugs, medicaments and biological substances

== ENCOUNTER → 2020-02-16 | Outpatient (CLI) | payer MEDICARE | LOC: M.ULTRA 13:00 | PROVIDERS: ATTEND Nurse Practitioner Family | DX: M79.604 Pain in right leg (principal); M79.605 Pain in left leg ==

== ENCOUNTER 2021-01-15 06:58 | Inpatient (IN) | payer MEDICARE ==
[~2021-01-15] VITALS: Ht 144.8 cm; Wt 81.8 kg
[~2021-01-15 06:58] MED LIST changes: -REQUIP3 MG PO
[2021-01-15 07:00] VITALS: BP 211/100
[2021-01-15 07:24] LABS: ABSOLUTE BASOPHILS 0.1 thou/uL (0.0-0.2); ABSOLUTE EOSINOPHILS 0.5 thou/uL (0.0-0.7); ABSOLUTE LYMPHOCYTES 2.4 thou/uL (0.8-5.3); ABSOLUTE NEUTROPHILS 6.5 thou/uL (1.6-8.1); BASOPHILS 1.3 %; EOSINOPHILS 5.1 %; HEMATOCRIT 34.2 % (37.0-47.0); HEMOGLOBIN 11.5 gm/dL (12.0-15.0); LYMPHOCYTES 22.9 %; MCH 31.9 pg (26.0-34.0); MCHC 33.8 g/dL (28.0-37.0); MCV 94.4 fL (80.0-100.0); MONOCYTES 9.1 %; MPV 7.7 fl. (7.2-11.1); NUCLEATED RBCS 0 /100WBC; PLATELET COUNT* 337 thou/uL (150-400); POLYS 61.6 %; RBC 3.62 mil/uL (4.20-5.00); RDW-CV 13.5 % (10.5-14.5); WBC 10.5 thou/uL (4.0-11.0)
[2021-01-15 07:52] LABS: CALCIUM 8.9 mg/dL (8.5-10.1); CREATININE 0.9 mg/dL (0.6-1.3); POTASSIUM 4.1 mmol/L (3.5-5.1)
[2021-01-15 08:02] LABS: ALBUMIN 3.7 g/dL (3.4-5.0); MAGNESIUM 1.9 mg/dL (1.8-2.4); TOTAL BILIRUBIN 0.2 mg/dL (<0.1-1.0); TOTAL PROTEIN 7.1 g/dL (6.4-8.2)
[2021-01-15 09:52] VITALS: BP 189/81
[2021-01-15] MEDS ORDERED: XARELTO20 MG PO (10:32)
[2021-01-15] MEDS ORDERED: CARVEDILOL25 MG PO (10:32)
[2021-01-15] MEDS ORDERED: HYDRALAZINE 10M10 MG PO ×2 (10:32→10:33)
[2021-01-15] MEDS ORDERED: LISINOPRIL20 MG PO (10:33)
[2021-01-15] MEDS ORDERED: LASIX 20 MG TAB20 MG PO (10:33)
[2021-01-15 10:36] VITALS: BP 204/96
--- NOTE | 2021-01-15 10:40 | NUR ---
PT ADMITTED WITH HYPERTENSIVE URGENCY. PHYSICIAN NOTIFED OF BLOOD PRESSURE ELEVATE. CALLED PT PHARMACY TO VERIFY MEDS. PHYSICIAN NOTIFIED OF HOME MEDS UPDATED. PT RESTING IN BED. FALL RISK PRECAUTIONS IN PLACE. CALL LIGHT WITHIN REACH.
--- NOTE | 2021-01-15 14:25 | EKG ---
[place] [address] ELECTROCARDIOGRAM REPORT Name: NAIMA FLORES Room: [address] ADM IN M.R.#: [id number] Admission: 01/15/21 Attend Phys: Eric Hess Discharge: Date of : 38 Date of Service: 01/15/21 0725 Report #: [id number] THIS REPORT FOR: //name// [facility] ED Test Date: 2021-01-15 Test Time: 07:25:00 Pat Name: NAIMA FLORES Department: Room: [facility] Gender: F Complaint Evaluation Officer: CD : 1940 Requested By: Aguilar De La Fuente Order Number: [id number] MD: Magan Melendez Measurements Intervals [place] Rate: 62 P: 42 MT: 166 QRS: 36 QRSD: 90 T: 43 QT: 422 QTc: 429 Interpretive Statements Sinus rhythm Compared to ECG 09/05/2019 21:14:32 Myocardial infarct finding no longer present Early repolarization no longer present Possible ischemia no longer present Electronically Signed On 01-15-2021 14:24:48 CDT by Magan Melendez [email or web address] <ELECTRONICALLY SIGNED> By: Magan Melendez MD, FAC 01/15/21 1424 Magan Melendez MD, [facility] /EPI
[2021-01-15 16:00] VITALS: BP 128/62
--- NOTE | 2021-01-15 16:42 | NUR ---
PT REMAINED ALERT AND ORIENTED. PT HYPERTENSIVE. HOME MEDS UPDATED AND PHYSICIAN NOTIFED. FALL RISK PRECAUTIONS IN PLACE. HOURLY ROUNDING COMPLETED. CALL LIGHT WITHIN REACH.
[2021-01-15 19:54] VITALS: BP 172/69
[2021-01-16] VITALS (8 sets, daily range): BP systolic 91–173; BP diastolic 41–67
[2021-01-16 03:55] LABS: HEMOGLOBIN 9.9 gm/dL (12.0-15.0); MCH 32.1 pg (26.0-34.0); MCHC 34.3 g/dL (28.0-37.0); MCV 93.6 fL (80.0-100.0); MPV 7.7 fl. (7.2-11.1); RBC 3.1 mil/uL (4.20-5.00); RDW-CV 13.1 % (10.5-14.5); WBC 9.2 thou/uL (4.0-11.0)
[2021-01-16 04:07] LABS: CALCIUM 8.7 mg/dL (8.5-10.1); POTASSIUM 3.4 mmol/L (3.5-5.1)
--- NOTE | 2021-01-16 04:53 | NUR ---
PT SEEMS TO DRINK A LOT OF COFFEE AT HOME AND REPORTED A HEADACHE SO I GAVE HER SOME COFFEE AND IT WENT AWAY. SHE TOOK BENADRYL AT BEDTIME. TESSLON JESSICA FOR DRY COUGH DURING NIGHT. SHE IS STANDBY ASSIST WITH WALKER TO BATHROOM, FALL PRECAUTIONS IN PLACE. SHE IS ALERT AND ORIENTED BUT WITH SOME FORGETFULNESS. I ENCOURAGED WATER INTAKE. SHE WAS ABLE TO SLEEP AFTER 3 AM.
[2021-01-16 08:21] LABS: CALCIUM 8.8 mg/dL (8.5-10.1); CREATININE 0.9 mg/dL (0.6-1.3); POTASSIUM 3.5 mmol/L (3.5-5.1)
[2021-01-16 08:24] LABS: PHOSPHORUS* 3.7 mg/dL (2.5-4.9)
--- NOTE | 2021-01-16 11:35 | CON ---
[address] [address] CONSULTATION Name: NAIMA FLORES Room: [address] ADM IN M.Andrey.#: [id number] Admission: 01/15/21 Attend Phys: Angela Bueno Discharge: Date of : 39 Report #: [id number] THIS REPORT FOR: cc: Bismark Shaikh MD, Tuongvan T. MD Liston, Michael J. MD [facility] ~ cc: Bismark Shaikh MD DATE OF CONSULTATION: 01/15/2021 INDICATIONS: Hypertensive urgency and elevated troponin. HISTORY OF PRESENT ILLNESS: The patient is a very pleasant 80-year-old white female who is well known to myself. She has a long history of hypertension that has been somewhat difficult to control. She has chronic diastolic dysfunction and heart failure as well as hypertensive heart disease. The patient presents to the hospital with complaints of weakness, lower extremity edema and shortness of breath. She was found to be significantly hypertensive. The patient states she has been feeling weak and fatigued for at least the past week. She denies any chest pain. She does have shortness of breath and orthopnea as well as paroxysmal nocturnal dyspnea. She is without other specific complaints at this time. PAST MEDICAL HISTORY: 1. Hypertension. 2. Hypertensive heart disease. 3. Coronary artery disease with percutaneous coronary intervention in May of this year. 4. History of recent DVT and bilateral pulmonary emboli, on chronic anticoagulation. 5. Recent fracture of the right ankle status post ORIF. 6. Stage 3 kidney disease. 7. Asthma. 8. Remote history of TIA. 9. Mild right carotid stenosis. HOME MEDICATIONS: Tylenol p.r.n., alendronate 35 mg oral weekly, aspirin 325 mg daily, atorvastatin 40 mg daily, calcium with vitamin D supplement daily, Coreg 25 mg b.i.d., vitamin D3 at 5000 units daily, Benadryl 25 mg at bedtime p.r.n., duloxetine 30 mg daily, Flonase nasal spray daily, furosemide 20 mg p.o. daily, hydralazine 10 mg p.o. b.i.d., lamotrigine 250 mg daily, lisinopril 40 mg daily, loratadine 10 mg daily, nifedipine 60 mg daily, omeprazole 20 mg daily, oxymetazoline spray 2 sprays p.r.n., Xarelto 20 mg daily, ropinirole 3 mg at bedtime p.r.n., Topamax 50 mg b.i.d., tramadol 50 mg every 8 hours p.r.n., Maxzide 25 mg 1 tablet daily, Anoro [place] [address] CONSULTATION Name: NAIMA FLORES Room: [address] IN .R.#: [id number] Admission: 01/15/21 Attend Phys: Angela Bueno Discharge: Date of : 39 Report #: [id number] FAMILY HISTORY: Noncontributory. SOCIAL HISTORY: The patient quit smoking remotely. She drinks alcohol occasionally. PHYSICAL EXAMINATION: VITAL SIGNS: Blood pressure 204/96, pulse 69 and regular. GENERAL: This is a pleasant elderly female in no distress. Mood and affect appropriate. HEENT: Extraocular muscles intact. Mucous membranes are moist. NECK: Examination of the neck shows no jugular venous distention. CHEST: Reveals diminished breath sounds without wheezes. CARDIAC: Reveals a regular rhythm. Normal S1 and S2. I do not appreciate gallop or murmur. ABDOMEN: Reveals a protuberant abdomen, soft and nontender. Bowel sounds present. EXTREMITIES: Shows trace 1+ edema of the lower extremities. SKIN: Dry. LABORATORY DATA: Reviewed. Sodium 144, potassium 4.1, chloride 108, bicarbonate 28, BUN 22, creatinine 0.9, serum glucose 110. LFTs are within normal limits. High sensitivity troponin 190 and 170 sequentially. NT-proBNP 741. Coags are within normal limits. White blood cell count 10.5, hemoglobin 11.5, platelet count 337,000. Portable chest shows no acute radiographic abnormality. IMPRESSION AND RECOMMENDATIONS: 1. Hypertension with hypertensive urgency. Resume home medications. I have increased her nifedipine to twice daily. We will give her additional furosemide for prompt diuresis, which should also improve her blood pressure. We will follow up labs in a.m. 2. History of coronary artery disease. The patient had percutaneous coronary intervention at outside hospital in May. Those records have been requested. She is not presently on dual antiplatelet therapy as she is anticoagulated with Xarelto. 3. History of recent deep venous thrombosis and bilateral pulmonary emboli. The patient is on Xarelto presently. 4. Hyperlipidemia, has been at goal on atorvastatin 40 mg daily. 5. Chronic diastolic heart failure, presently appears fairly well compensated. 6. Elevated troponin secondary to hypertension. She is not having any symptoms to suggest acute coronary syndrome. [address] [place] [address] CONSULTATION Name: [facility],NAIMA Room: [address] IN Chung.#: [id number] Admission: 01/15/21 Attend Phys: Angela Bueno Discharge: Date of : 38 Report #: [id number] 7. Remote history of transient ischemic attack without recurrence. 8. Mild carotid stenosis of the right, asymptomatic at this time. <ELECTRONICALLY SIGNED> By: Magan Melendez MD, FACC 01/16/21 1135 1313 11[facility] Hospitalfrancisco javier Melendez MD, FACC /nt
--- NOTE | 2021-01-16 18:16 | NUR ---
PT COMPLAINED OF GENERALIZED PAIN THIS AM-TREATED WITH PRN TRAMADOL WITH PARTIAL RELIEF. ON RA SAT MID 90'S. DENIES ANY SHORTNESS OF BREATH. A&0X4, UP WITH 1 ASSIST GAIT BELT AND WALKER. PT UP TO RECLINER FOR MOST OF AFTERNOON. PT HYPOTENSIVE(80'S-40'S) THIS AFTERNOON AFTER RECEIVING AM MEDS. NOTIFIED. MEDICATION ADJUSTMENTS MADE. REFER TO EMAR. AM ASSESSMENT CHARTED. MEDICATIONS PER MAR. PT REPOSITIONS SELF. HOURLY ROUNDING OBSERVED. BED IN LOW POSITION. BED ALARM IN PLACE. FALL PRECAUTIONS IN PLACE. CALL LIGHT WITHIN REACH. WILL CONTINUE PLAN OF CARE.
[2021-01-17] VITALS: BP 129/59
[2021-01-17 04:23] VITALS: BP 124/57
--- NOTE | 2021-01-17 04:28 | NUR ---
PT ALERT BUT WITH SOME ANXIETY. SHE STATES SHE HURTS ALL OVER AND CANNOT BE SPECIFIC. PAIN MEDS GIVEN TO HELP HER SLEEP. SHE IS STANDBY WITH WALKER AND REQUIRES EXTRA TIME TO GET UP AND DOWN FROM BED. SHE HAS SOME SLIGHT FORGETFULNESS. NO REPORTS OF NAUSEA OR VOMITING. RECEIVED ALL MEDS SCHEDULED. MONITOR LABS, WILL CONTINUE TO MONITOR.
[2021-01-17 04:33] LABS: HEMATOCRIT 30.2 % (37.0-47.0); HEMOGLOBIN 10.1 gm/dL (12.0-15.0); MCH 31.2 pg (26.0-34.0); MCHC 33.3 g/dL (28.0-37.0); MCV 93.8 fL (80.0-100.0); MPV 7.8 fl. (7.2-11.1); RBC 3.22 mil/uL (4.20-5.00); RDW-CV 13.1 % (10.5-14.5); WBC 11.8 thou/uL (4.0-11.0)
[2021-01-17 04:48] LABS: CALCIUM 8.6 mg/dL (8.5-10.1); CREATININE 1.4 mg/dL (0.6-1.3); POTASSIUM 3.9 mmol/L (3.5-5.1)
[2021-01-17 08:00] VITALS: BP 113/69
--- NOTE | 2021-01-17 08:00 | NUR ---
ASSUMED CARE OF PT AT 0730. PT A&0X4, FORGETFUL AT TIMES. DENIES ANY PAIN OR SHORTNESS OF BREATH AT THIS TIME. TRACING SR ON THE SEWING LINE BALER. ON RA SAT MID 90'S. PT UP WITH 1 ASSIST GAIT BELT AND WALKER. WEAKNESS NOTED. PT GOAL FOR TODAY IS DISCHARGE PLANNING TO HOME WITH HOME HEALTH IF CLEARED BY CARDIOLOGY. AM ASSESSMENT CHARTED. MEDICATIONS PER JUL. PT REPOSITIONS SELF WITH REMINDERS. BED ALARM IN PLACE. FALL PRECAUTIONS IN PLACE. HOURLY ROUNDING OBSERVED. BED IN LOW POSITION. CALL LIGHT WITHIN REACH. WILL CONTINUE PLAN OF CARE.
[2021-01-17 11:25] VITALS: BP 105/42
[2021-01-17 11:38] VITALS: BP 105/42
[2021-01-17 14:30] VITALS: BP 105/42
--- NOTE | 2021-01-17 15:30 | NUR ---
PT CLEARED BY CARDIOLOGY FOR DISCHARGE. DISCHARGE ORDERS RECEIVED. DISCHARGE INSTRUCTIONS, CARE NOTES AND FOLLOW UP APPTS GIVEN TO PT. PT COMMUNICATES UNDERSTANDING OF DISCHARGE TEACHING. IV AND MAILING CLERK REMOVED. PT DISCHARGED WITH ALL BELONGINGS AND PAPERWORK VIA WHEELCHAIR WITH NURSING STAFF TO DAUGHTER OWN PERSONAL VEHICLE.
== END 2021-01-17 15:30 | disposition home health service (06) | DRG 291 ==
LOC: M.ERS 06:58 → M.TBA-ER 08:30 → M.2W 08:30
PROVIDERS: Family Medicine; ADMIT Internal Medicine; ATTEND Internal Medicine
DX: I13.0 Hypertensive heart and chronic kidney disease with heart failure and stage 1 through stage 4 chronic kidney disease, or unspecified chronic kidney disease (principal); I50.33 Acute on chronic diastolic (congestive) heart failure; N17.9 Acute kidney failure, unspecified; N18.30 Chronic kidney disease, stage 3 unspecified; Z20.822 Contact with and (suspected) exposure to COVID-19; J44.9 Chronic obstructive pulmonary disease, unspecified; G25.81 Restless legs syndrome; K21.9 Gastro-esophageal reflux disease without esophagitis; F41.1 Generalized anxiety disorder; I16.0 Hypertensive urgency; I25.10 Atherosclerotic heart disease of native coronary artery without angina pectoris; J45.909 Unspecified asthma, uncomplicated; Z86.73 Personal history of transient ischemic attack (TIA), and cerebral infarction without residual deficits; Z86.711 Personal history of pulmonary embolism; Z88.0 Allergy status to penicillin; Z88.8 Allergy status to other drugs, medicaments and biological substances; Z88.6 Allergy status to analgesic agent; Z91.041 Radiographic dye allergy status; Z86.718 Personal history of other venous thrombosis and embolism; Z91.14 Patient's other noncompliance with medication regimen

== ENCOUNTER → 2021-03-03 | Outpatient (CLI) | payer MEDICARE ==
[~2021-03-03] MED LIST changes: +ANORO ELLIPTA1 EACH; +CARVEDILOL25 MG PO; +HYDRALAZINE 10M10 MG PO; +LASIX 20 MG TAB20 MG PO; +LISINOPRIL20 MG PO; +MELATONIN5 MG; +MELOXICAM15 MG PO; +POTASSIUM CHLO10 ME1; +PROTONIX40 M2 PO; +XARELTO20 MG PO
== END ==
LOC: M.PC 09:30
PROVIDERS: ATTEND Anesthesiology Pain Medicine
DX: M47.816 Spondylosis without myelopathy or radiculopathy, lumbar region (principal); J44.9 Chronic obstructive pulmonary disease, unspecified; I25.10 Atherosclerotic heart disease of native coronary artery without angina pectoris; E78.5 Hyperlipidemia, unspecified; K21.9 Gastro-esophageal reflux disease without esophagitis; I12.9 Hypertensive chronic kidney disease with stage 1 through stage 4 chronic kidney disease, or unspecified chronic kidney disease; N18.30 Chronic kidney disease, stage 3 unspecified; R60.1 Generalized edema; Z88.0 Allergy status to penicillin; Z88.8 Allergy status to other drugs, medicaments and biological substances; Z79.82 Long term (current) use of aspirin; Z79.899 Other long term (current) drug therapy

== ENCOUNTER → 2021-03-17 | Outpatient (CLI) | payer MEDICARE | END | disposition home or self-care (01) | LOC: M.PC 10:57 | PROVIDERS: ATTEND Anesthesiology Pain Medicine | DX: M54.16 Radiculopathy, lumbar region (principal); M54.42 Lumbago with sciatica, left side; G89.29 Other chronic pain; I12.9 Hypertensive chronic kidney disease with stage 1 through stage 4 chronic kidney disease, or unspecified chronic kidney disease; N18.30 Chronic kidney disease, stage 3 unspecified; I25.10 Atherosclerotic heart disease of native coronary artery without angina pectoris; E78.5 Hyperlipidemia, unspecified; J44.9 Chronic obstructive pulmonary disease, unspecified; K21.9 Gastro-esophageal reflux disease without esophagitis; Z98.890 Other specified postprocedural states; Z79.899 Other long term (current) drug therapy; Z86.73 Personal history of transient ischemic attack (TIA), and cerebral infarction without residual deficits; Z86.718 Personal history of other venous thrombosis and embolism; Z79.01 Long term (current) use of anticoagulants; Z87.891 Personal history of nicotine dependence; Z91.040 Latex allergy status; Z88.8 Allergy status to other drugs, medicaments and biological substances ==

== ENCOUNTER → 2021-05-24 | Outpatient (CLI) | payer MEDICARE ==
--- NOTE | 2021-05-24 14:17 | 2DMMODE ---
[place] [address] 2 D/M-MODE ECHOCARDIOGRAM Name: NAIMA FLORES Room: [facility]#: [id number] Admission: 05/24/21 Attend Phys: Janel Mcneill, Discharge: Date of : 38 Date of Service: 05/24/21 1417 Report #: [id number] THIS REPORT FOR: cc: Bismark Shaikh MD, Tuongvan T. MD Holkins, John M. MD [facility] ~ APPROVED REPORT Study performed: 05/24/2021 14:12:37 EXAM: Comprehensive 2D, Doppler, and color-flow Echocardiogram Patient Location: Out-Patient BSA: 1.70 HR: 61 bpm BP: 180/73 mmHg Other Information Study Quality: Good Indications CAD 2D Dimensions IVSd: 10.75 (7-11mm) LVOT Diam: 20.06 (18-24mm) LVDd: 40.42 mm PWd: 12.37 (7-11mm) Ascending Ao: 33.75 (22-36mm) LVDs: 19.99 (25-40mm) Aortic Root: 31.71 mm Volumes Left Atrial Volume (Systole) LA ESV Index: 15.40 mL/m2 Aortic Valve AoV Peak David.: 1.48 m/s AO Peak Gr.: 8.75 mmHg LVOT Max P.26 mmHg AO Mean Gr.: 5.01 mmHg LVOT Mean P.97 mmHg LVOT Max V: 1.03 m/s AO V2 VTI: 31.88 cm LVOT Mean V: 0.64 m/s JERSON (VTI): 2.40 cm2 LVOT V1 VTI: 24.20 cm Mitral Valve E/A Ratio: 0.91 [place] [address] 2 D/M-MODE ECHOCARDIOGRAM Name: SANDRANAIMA [id number] Admission: 05/24/21 Attend Phys: Janel Mcneill, Discharge: Date of : 38 Date of Service: 05/24/21 1417 Report #: [id number] MV Decel. Time: 254.85 ms MV E Max David.: 0.70 m/s MV PHT: 73.91 ms MVA (PHT): 2.98 cm2 TDI E/Lateral E': 6.36 E/Medial E': 7.00 Medial E' David.: 0.10 m/s Lateral E' David.: 0.11 m/s Pulmonary Valve PV Peak David.: 0.96 m/s PV Peak Gr.: 3.68 mmHg Tricuspid Valve RAP Estimate: 6.00 mmHg TR Peak Gr.: 33.66 mmHg RVSP: 38.66 mmHg PA Pressure: 38.66 mmHg Left Ventricle The left ventricle is normal size. There is normal LV segmental wall motion. Mild concentric left ventricular hypertrophy. Left ventricular systolic function is normal. The left ventricular ejection fraction is within the normal range. LVEF is 60-65%. Grade I - abnormal relaxation pattern. Right Ventricle The right ventricle is normal size. The right ventricular systolic function is normal. Atria The left atrium size is normal. The right atrium size is normal. Aortic Valve Mild aortic valve sclerosis. Mild aortic regurgitation. There is no aortic valvular stenosis. Mitral Valve The mitral valve is normal in structure. Mild mitral regurgitation. No evidence of mitral valve stenosis. Tricuspid Valve The tricuspid valve is normal in structure. Mild tricuspid regurgitation. Mild pulmonary [place] [address] 2 D/M-MODE ECHOCARDIOGRAM Name: NAIMA FLORES Room: [facility]#: [id number] Admission: 05/24/21 Attend Phys: Janel Mcneill, Discharge: Date of : 38 Date of Service: 05/24/21 1417 Report #: [id number] The pulmonary valve is normal in structure. There is no pulmonic valvular regurgitation. Great Vessels The aortic root is normal in size. IVC is normal in size and collapses >50% with inspiration. Pericardium There is no pericardial effusion. <Conclusion> The left ventricle is normal size. Mild concentric left ventricular hypertrophy. Left ventricular systolic function is normal. The left ventricular ejection fraction is within the normal range. LVEF is 60-65%. Grade I - abnormal relaxation pattern. The right ventricle is normal size. The left atrium size is normal. Mild aortic valve sclerosis. Mild aortic regurgitation. There is no aortic valvular stenosis. The mitral valve is normal in structure. Mild mitral regurgitation. The tricuspid valve is normal in structure. Mild tricuspid regurgitation. Mild pulmonary hypertension. IVC is normal in size and collapses >50% with inspiration. There is no pericardial effusion. There is normal LV segmental wall motion. <ELECTRONICALLY SIGNED> By: Pierre Trejo MD, FACC 05/24/21 141 16 16 Pierre Trejo MD, FACC /INF
--- NOTE | 2021-05-25 16:55 | CARDNUC ---
[place] [address] CARDIAC NUCLEAR IMAGING REPORT Name: NAIMA FLORES Room: [facility]#: [id number] Admission: 05/24/21 Attend Phys: Janel Mcneill, Discharge: Date of : 38 Date of Service: 05/25/21 1655 Report #: [id number] THIS REPORT FOR: cc: Bismark Shaikh MD, Tuongvan T. MD Liston, Michael J. MD [facility] ~ APPROVED REPORT Imaging Protocol: Stress Tc-99m/Rest Tc-99m 1 day Study performed: 05/24/2021 15:05:44 Indication: CAD Patient Location: Out-Patient Stress Nurse: Katherine Salter RN Ht: 4 ft 9 in Wt: 175 lbs BSA: 1.70 m2 BMI: 37.86 Medical History Medical History: Stroke/TIA, CHF, Carotid artery disease, CAD s/p stent, HTN, Hyperlipidemia, PVD Medications: asa, atorvastatin, carvedilol, hydralazine, lisinopril, nefedipine, riveroxaban, furosemeide, kcl Allergies: multiple Cardiac Risk Factors: Age, HTN, Hyperlipidemia, Past Smoker Previous Cardiac Procedures: PCI Exercise History: Sedentary Meds Held (24 hrs): carvedilol Resting Data Rest SPECT myocardial perfusion imaging was performed in supine position 30 minutes following the intravenous injection of 10.1 mCi of Tc-99m Sestamibi. Time of rest injection: 14:05 The images were gated to evaluate regional wall motion and calculate left ventricular ejection fraction. Administration Route: IV Pharmacologic Stress Pharmacologic stress test was performed by injecting Regadenoson 0.4 mg IV push over 10-15 seconds immediately followed by the intravenous injection of 35.2 mCi of Tc-99m Sestamibi. Time of stress injection: 15:05 Administration Route: [place] [address] CARDIAC NUCLEAR IMAGING REPORT Name: NAIMA FLORES Room: [facility]#: [id number] Admission: 05/24/21 Attend Phys: Janel Mcneill, Discharge: Date of : 38 Date of Service: 05/25/21 1655 Report #: [id number] Heart Rate at time of stress injection: 70 bpm. Gated Stress SPECT was performed 45 minutes after stress injection. The images were gated to evaluate regional wall motion and calculate left ventricular ejection fraction. Stress Test Details Stress Test: Pharmacologic stress testing performed using 0.4 mg of regadenoson per 5 mL given IV over 10 seconds. Reason for pharmacologic stress test: physical limitation. HR Max Heart Rate (APMHR): 139 bpm Resting HR: 63 bpm Target HR (85% APMHR): 118 bpm Max HR Achieved: 74 bpm % of APMHR: 53 Recovery HR: 80 bpm BP Resting BP: 152/73 mmHg Max BP: 138/64 mmHg Recovery BP: 168/74 mmHg ECG Resting ECG: Sinus Rhythm, nonspecific ST-T abnormalities Stress ECG: Sinus Rhythm, nonspecific ST-T abnormalities ST Change: None Arrhythmia: None Recovery ECG: Sinus Rhythm, nonspecific ST-T abnormalities Recovery ST Change: None Recovery Arrhythmia: None Clinical Reason for Termination: Completed protocol The patient tolerated Lexiscan infusion without significant cardiac symptoms. Stress ECG Conclusion The baseline twelve-lead EKG shows sinus rhythm with nonspecific T wave flattening and downsloping ST segment depression diffusely. EKGs obtained during and post Lexiscan infusion show sinus rhythm with no significant ST segment changes when compared to baseline. There were no stress-induced arrhythmias. Study Quality Study: [place] [address] CARDIAC NUCLEAR IMAGING REPORT Name: NAIMA FLORES Room: [facility]#: [id number] Admission: 05/24/21 Attend Phys: Janel Mcneill, Discharge: Date of : 38 Date of Service: 05/25/21 1655 Report #: [id number] Artifact: No artifact Study Data At rest, the left ventricular ejection fraction was 88%.. Post stress, the left ventricular ejection was 84%.. TID = 1.00. Perfusion Perfusion images obtained at rest and post Lexiscan stress show uniform uptake of the radioisotope throughout the myocardium. There were no defects to suggest infarct or ischemia. Wall Motion Normal left ventricular wall motion. Nuclear Conclusion ECG Findings: non-diagnostic Clinical Findings: negative for ischemia Nuclear Findings: negative for ischemia Exercise Capacity: not assessed Left Ventricular Function: normal Risk Study: low Perfusion images show no defect to suggest infarct or ischemia. Left ventricular systolic function appears normal on gated studies. This is a low risk study. <Conclusion> The baseline twelve-lead EKG shows sinus rhythm with nonspecific T wave flattening and downsloping ST segment depression diffusely. EKGs obtained during and post Lexiscan infusion show sinus rhythm with no significant ST segment changes when compared to baseline. There were no stress-induced arrhythmias. <ELECTRONICALLY SIGNED> By: Magan Melendez MD, FACC 05/25/215 54 54 Magan Melendez MD, FACC /INF
== END ==
LOC: M.CRD 03-25 15:10 → M.NUC 14:00
PROVIDERS: ATTEND Nurse Practitioner
DX: I08.3 Combined rheumatic disorders of mitral, aortic and tricuspid valves (principal); I27.20 Pulmonary hypertension, unspecified; I50.32 Chronic diastolic (congestive) heart failure; I25.10 Atherosclerotic heart disease of native coronary artery without angina pectoris

== ENCOUNTER 2021-06-14 22:01 | Observation (INO) | payer MEDICARE ==
[~2021-06-14] VITALS: Ht 144.8 cm; Wt 76.7 kg
[2021-06-14 22:04] VITALS: BP 129/81
[2021-06-14 22:33] LABS: HEMATOCRIT 29.6 % (37.0-47.0); HEMOGLOBIN 9.7 gm/dL (12.0-15.0); MCH 31.1 pg (26.0-34.0); MCHC 32.9 g/dL (28.0-37.0); MCV 94.5 fL (80.0-100.0); RBC 3.14 mil/uL (4.20-5.00); RDW-CV 15.2 % (10.5-14.5); WBC 14.1 thou/uL (4.0-11.0)
[2021-06-14 22:41] LABS: CALCIUM 8.5 mg/dL (8.5-10.1); CREATININE 2.1 mg/dL (0.6-1.3); POTASSIUM 4.9 mmol/L (3.5-5.1)
[2021-06-14 22:46] LABS: ALBUMIN 3.9 g/dL (3.4-5.0); TOTAL BILIRUBIN 0.5 mg/dL (<0.1-1.0); TOTAL PROTEIN 6.9 g/dL (6.4-8.2)
[2021-06-14 22:59] LABS: AMP/METHAMP Negative (Negative); BARBITURATES Negative (Negative); BENZODIAZEPINES Negative (Negative); COCAINE Negative (Negative); METHADONE Negative (Negative); OPIATES Negative (Negative); PCP Negative (Negative); THC Negative (Negative); URINE BILIRUBIN NEGATIVE (Negative); URINE BLOOD NEGATIVE (Negative); URINE CLARITY CLEAR; URINE COLOR YELLOW; URINE GLUCOSE-RANDOM NEGATIVE (Negative); URINE KETONES TRACE (Negative); URINE LEUKOCYTES-REFLEX NEGATIVE (Negative); URINE NITRITE-REFLEX NEGATIVE (Negative); URINE PROTEIN NEGATIVE (Negative); URINE UROBILINOGEN 0.2 E.U./dl (0.2-1.0)
[2021-06-15 04:41] VITALS: BP 121/44; BP 134/62
[2021-06-15 07:30] VITALS: BP 141/82
--- NOTE | 2021-06-15 09:57 | EKG ---
[place] [address] ELECTROCARDIOGRAM REPORT Name: NAIMA FLORES Room: [address] M.R.#: [id number] Admission: 06/15/21 Attend Phys: Camila Mixon Discharge: Date of : 38 Date of Service: 06/15/2141 Report #: [id number] THIS REPORT FOR: //name// [facility] ED Test Date: 2021-06-15 Test Time: 00:42:11 Pat Name: NAIMA FLORES Department: Room: [facility] Gender: F [employer]: [place] : 1940 Requested By: Tatyana Latham Order Number: [id number] MD: Magan Melendez Measurements Intervals [place] Rate: 54 P: 67 NC: 183 QRS: 34 QRSD: 95 T: 32 QT: 465 QTc: 441 Interpretive Statements Sinus rhythm Compared to ECG 01/15/2021 07:25:00 No significant changes Electronically Signed On 06-15-2021 9:57:20 PATIENT SAFETY TECH by Magan Melendez [email or web address] <ELECTRONICALLY SIGNED> By: Magan Melendez MD, [facility] 06/15/21 0957 004 Magan Melendez MD, [facility] /EPI
[2021-06-15 11:02] VITALS: BP 126/53
[2021-06-15 15:33] LABS: BE -2.7 mmol/L (-2 to +3); PCO2 VENOUS 45.6 mmHg (41.0-51.0); PO2 VENOUS 42.3 mmHg (35.0-45.0)
[2021-06-15 15:34] LABS: ABSOLUTE EOSINOPHILS 0.3 thou/uL (0.0-0.7); ABSOLUTE LYMPHOCYTES 1.9 thou/uL (0.8-5.3); ABSOLUTE MONOCYTES 0.7 thou/uL (0.0-1.2); ABSOLUTE NEUTROPHILS 4.2 thou/uL (1.6-8.1); BASOPHILS 0.7 %; EOSINOPHILS 4.4 %; HEMATOCRIT 28.9 % (37.0-47.0); LYMPHOCYTES 26.4 %; MCHC 34.5 g/dL (28.0-37.0); MCV 92.7 fL (80.0-100.0); MONOCYTES 10.3 %; MPV 7.2 fl. (7.2-11.1); NUCLEATED RBCS 0 /100WBC; PLATELET COUNT* 282 thou/uL (150-400); POLYS 58.2 %; RBC 3.12 mil/uL (4.20-5.00); RDW-CV 14.9 % (10.5-14.5); WBC 7.2 thou/uL (4.0-11.0)
[2021-06-15 15:37] VITALS: BP 126/53
[2021-06-15 15:43] LABS: CALCIUM 8.3 mg/dL (8.5-10.1); CREATININE 1.9 mg/dL (0.6-1.3); POTASSIUM 4.5 mmol/L (3.5-5.1)
[2021-06-15 15:47] LABS: ALBUMIN 3.7 g/dL (3.4-5.0); MAGNESIUM 1.8 mg/dL (1.8-2.4); TOTAL BILIRUBIN 0.3 mg/dL (<0.1-1.0); TOTAL PROTEIN 6.6 g/dL (6.4-8.2)
[2021-06-15 15:48] VITALS: BP 112/62
== END 2021-06-15 16:14 | disposition home or self-care (01) ==
LOC: M.ERS 22:01 → M.TBA-ER 06-15 00:42
PROVIDERS: Personal Emergency Response Attendant; ADMIT Internal Medicine; ATTEND Internal Medicine
DX: R27.0 Ataxia, unspecified (principal); J44.9 Chronic obstructive pulmonary disease, unspecified; Z20.822 Contact with and (suspected) exposure to COVID-19; I10 Essential (primary) hypertension; F41.9 Anxiety disorder, unspecified; J45.909 Unspecified asthma, uncomplicated; K21.9 Gastro-esophageal reflux disease without esophagitis; M19.90 Unspecified osteoarthritis, unspecified site; G89.29 Other chronic pain; I48.0 Paroxysmal atrial fibrillation; Z79.01 Long term (current) use of anticoagulants; Z86.73 Personal history of transient ischemic attack (TIA), and cerebral infarction without residual deficits; Z79.82 Long term (current) use of aspirin; Z79.899 Other long term (current) drug therapy; Z88.8 Allergy status to other drugs, medicaments and biological substances; Z87.891 Personal history of nicotine dependence; W01.0XXA Fall on same level from slipping, tripping and stumbling without subsequent striking against object, initial encounter; Y93.89 Activity, other specified; Y92.89 Other specified places as the place of occurrence of the external cause; Y99.8 Other external cause status; I25.10 Atherosclerotic heart disease of native coronary artery without angina pectoris